=== PATIENT | female | born 1945 | race Caucasian/White ===

== ENCOUNTER 2020-05-20 07:34 | Outpatient (REF) | payer MEDICARE, SELFPAY ==
[2020-05-20 08:26] LABS: MANUAL DIFF FLAG NO
[2020-05-20 08:30] LABS: Basophils Percent Auto 0.5 % (0-2); Eosinophils Absolute Auto 0.2 X10*3/uL (0.0-0.4); Eosinophils Percent Auto 2.5 % (0-4); Hematocrit 40.7 % (37-47); Hemoglobin 13.8 g/dl (12.0-16.0); Imm Gran Abs Auto 0.02 X10*3/uL (0.00-0.03); Imm Gran Pct Auto 0.2 % (0.0-0.4); Lymphocytes Absolute Auto 4.1 X10*3/uL (1.2-4.9); Mean Corpuscular HGB Conc 33.9 g/dl (31.0-35.0); Mean Corpuscular Hemoglobin 31.8 pg (27.0-33.0); Mean Corpuscular Volume 93.8 fL (80-98); Mean Platelet Volume 10.3 fL (9.4-12.3); Monocytes Absolute Auto 0.8 X10*3/uL (0.1-1.2); Monocytes Percent Auto 9.1 % (2-11); Neutrophils Absolute Auto 3.6 X10*3/uL (2.0-8.3); Neutrophils Percent Auto 40.7 % (45-73); Platelet Count 284 X10*3/uL (160-400); Red Blood Count 4.34 X10*6/uL (4.20-5.50); Red Cell Distribution Width 12.7 % (11.0-16.0); White Blood Count 8.7 X10*3/uL (4.8-10.8)
[2020-05-20 08:51] LABS: Alanine Aminotransferase 54 U/L (0-31); Albumin Level 4.5 g/dL (3.5-5.0); Alkaline Phosphatase 83 U/L (39-117); Anion Gap 14 (12-20); Aspartate Amino Transferase 42 U/L (5-31); Bilirubin Total 0.7 mg/dL (0.0-1.0); Blood Urea Nitrogen 14 mg/dL (9-16); Calcium 9.6 mg/dL (8.4-10.2); Carbon Dioxide 25 mmol/L (22-29); Chloride 105 mmol/L (96-108); Cholesterol 285 mg/dL; Estimated Glomerular Filt Rate > 60; Glucose Fasting 121 mg/dL (60-99); HDL Cholesterol 51 mg/dL; LDL Cholesterol Calculated 165 mg/dl; Sodium 140 mmol/L (135-145); Total Protein 7.3 g/dL (6.5-8.0); Triglycerides 346 mg/dL
[2020-05-20 09:10] LABS: Estimated Average Glucose 114 mg/dL; Hemoglobin A1c % 5.6 %
[2020-05-20 12:48] LABS: Glucose Urine UA NEG (NEG); Leukocyte Esterase Urine 1+ (NEG); Nitrite Urine NEG (NEG); PH 5.5 (5.0-8.0); Specific Gravity - Urine 1.015 (1.005-1.025); Urine Blood NEG (NEG); Urine Ketones NEG (NEG); Urine Protein NEG (NEG-TRACE)
[2020-05-20 12:54] LABS: Appearance Urine HAZY; Color Urine YELLOW
[2020-05-20 13:13] LABS: Bacteria Urine 3+ /LPF; RBC Urine 0 /HPF (0); Renal Epithelial Cells Urine TRACE /LPF; Squamous Epithelial Cell Urine 1+ /LPF
[2020-05-20 13:46] LABS: Creatinine Urine 26.28 mg/dL; Microalbum/Creatinine Ratio Ur 30.4 ug/mg cr
== END 2020-05-20 07:35 | disposition home or self-care (01) ==
LOC: HO.LAB 07:34
PROVIDERS: PCP Internal Medicine; Visit Provider Internal Medicine
DX: Z00.00 Encounter for general adult medical examination without abnormal findings (principal); I10 Essential (primary) hypertension; R73.03 Prediabetes; D72.820 Lymphocytosis (symptomatic); E78.00 Pure hypercholesterolemia, unspecified
CPT/HCPCS: 36415; 80053; 80061; 81001; 82043; 83036; 84153; 85025

== ENCOUNTER 2020-07-07 16:58 | Outpatient (REF) | payer MEDICARE, SELFPAY | END 2020-07-07 16:59 | disposition home or self-care (01) | LOC: HO.LAB 16:58 | PROVIDERS: PCP Internal Medicine; Visit Provider Internal Medicine | DX: Z20.828 Contact with and (suspected) exposure to other viral communicable diseases (principal) | CPT/HCPCS: U0003 ==

== ENCOUNTER 2020-12-01 10:21 | Outpatient (REF) | payer MEDICARE, SELFPAY ==
[2020-12-01 11:23] LABS: Estimated Average Glucose 105 mg/dL; Hemoglobin A1c % 5.3 %
[2020-12-01 11:53] LABS: Alanine Aminotransferase 44 U/L (0-31); Albumin Level 4.4 g/dL (3.5-5.0); Alkaline Phosphatase 78 U/L (39-117); Aspartate Amino Transferase 33 U/L (5-31); Bilirubin Direct 0.2 mg/dL (0.0-0.5); Bilirubin Total 0.6 mg/dL (0.0-1.0); Cholesterol 270 mg/dL; Glucose Fasting 108 mg/dL (60-99); HDL Cholesterol 48 mg/dL; LDL Cholesterol Calculated 157 mg/dl; Total Protein 6.9 g/dL (6.5-8.0); Triglycerides 327 mg/dL
[2020-12-01 13:40] LABS: Reflex LDLD? No
== END 2020-12-01 10:22 | disposition home or self-care (01) ==
LOC: HO.LNP 10:21
PROVIDERS: PCP Internal Medicine; Visit Provider Internal Medicine
DX: R73.03 Prediabetes (principal); E78.2 Mixed hyperlipidemia; R79.89 Other specified abnormal findings of blood chemistry
CPT/HCPCS: 80061; 80076; 82947; 83036

== ENCOUNTER 2021-05-26 14:56 | Outpatient (REF) | payer MEDICARE, SELFPAY ==
[2021-05-26 15:00] LABS: MANUAL DIFF FLAG NO
[2021-05-26 15:10] LABS: Basophils Absolute Auto 0.1 X10*3/uL (0.0-0.2); Basophils Percent Auto 0.8 % (0-2); Eosinophils Absolute Auto 0.3 X10*3/uL (0.0-0.4); Eosinophils Percent Auto 3.2 % (0-4); Hematocrit 42.7 % (37-47); Hemoglobin 14.3 g/dl (12.0-16.0); Imm Gran Abs Auto 0.02 X10*3/uL (0.00-0.03); Imm Gran Pct Auto 0.3 % (0.0-0.4); Lymphocytes Absolute Auto 3.7 X10*3/uL (1.2-4.9); Lymphocytes Percent Auto 46.8 % (20-40); Mean Corpuscular HGB Conc 33.5 g/dl (31.0-35.0); Mean Corpuscular Hemoglobin 31.8 pg (27.0-33.0); Mean Corpuscular Volume 95.1 fL (80-98); Monocytes Absolute Auto 0.8 X10*3/uL (0.1-1.2); Monocytes Percent Auto 9.8 % (2-11); Neutrophils Absolute Auto 3.1 X10*3/uL (2.0-8.3); Neutrophils Percent Auto 39.1 % (45-73); Platelet Count 257 X10*3/uL (160-400); Red Blood Count 4.49 X10*6/uL (4.20-5.50); Red Cell Distribution Width 13.2 % (11.0-16.0); White Blood Count 7.9 X10*3/uL (4.8-10.8)
[2021-05-26 15:18] LABS: Estimated Average Glucose 111 mg/dL; Hemoglobin A1c % 5.5 %
[2021-05-26 15:51] LABS: Alanine Aminotransferase 36 U/L (0-31); Albumin Level 4.3 g/dL (3.5-5.0); Alkaline Phosphatase 85 U/L (39-117); Anion Gap 17 (12-20); Aspartate Amino Transferase 29 U/L (5-31); Bilirubin Total 0.5 mg/dL (0.0-1.0); Blood Urea Nitrogen 14 mg/dL (9-16); Calcium 9.7 mg/dL (8.4-10.2); Carbon Dioxide 23 mmol/L (22-29); Chloride 106 mmol/L (96-108); Cholesterol 272 mg/dL; Estimated Glomerular Filt Rate > 60; Glucose Fasting 105 mg/dL (60-99); HDL Cholesterol 45 mg/dL; LDL Cholesterol Calculated 174 mg/dl; Potassium 3.7 mmol/L (3.3-5.1); Sodium 142 mmol/L (135-145); Total Protein 6.8 g/dL (6.5-8.0); Triglycerides 268 mg/dL
[2021-05-26 18:21] LABS: Reflex LDLD? No
== END 2021-05-26 14:57 | disposition home or self-care (01) ==
LOC: HO.LNP 14:56
PROVIDERS: Visit Provider Internal Medicine
DX: I10 Essential (primary) hypertension (principal); R73.03 Prediabetes; D72.820 Lymphocytosis (symptomatic); E78.00 Pure hypercholesterolemia, unspecified; K75.81 Nonalcoholic steatohepatitis (NASH); R79.89 Other specified abnormal findings of blood chemistry
CPT/HCPCS: 80053; 80061; 83036; 85025

== ENCOUNTER 2021-05-28 11:18 | Outpatient (REF) | payer MEDICARE, SELFPAY ==
[2021-05-28 11:57] LABS: Appearance Urine HAZY; Color Urine YELLOW; Glucose Urine UA NEG (NEG); Leukocyte Esterase Urine 2+ (NEG); Nitrite Urine POS (NEG); Specific Gravity - Urine 1.015 (1.005-1.025); Urine Blood NEG (NEG); Urine Ketones NEG (NEG); Urine Protein NEG (NEG-TRACE)
[2021-05-28 12:09] LABS: RBC Urine 0 /HPF (0)
[2021-05-28 12:10] LABS: Bacteria Urine 2+ /LPF; Squamous Epithelial Cell Urine TRACE /LPF
[2021-05-28 18:02] LABS: Creatinine Urine 65.86 mg/dL; Microalbum/Creatinine Ratio Ur 12.1 ug/mg cr
== END 2021-05-28 11:19 | disposition home or self-care (01) ==
LOC: HO.LNP 11:18
PROVIDERS: PCP Internal Medicine; Visit Provider Internal Medicine
DX: I10 Essential (primary) hypertension (principal); R73.03 Prediabetes
CPT/HCPCS: 81001; 81003; 82043

== ENCOUNTER 2021-09-03 10:49 | Outpatient (REF) | payer MEDICARE, SELFPAY ==
[2021-09-03 11:30] LABS: Estimated Average Glucose 111 mg/dL; Hemoglobin A1c % 5.5 %
[2021-09-03 11:57] LABS: Alanine Aminotransferase 44 U/L (0-31); Albumin Level 4.5 g/dL (3.5-5.0); Alkaline Phosphatase 92 U/L (39-117); Aspartate Amino Transferase 34 U/L (5-31); Bilirubin Direct 0.2 mg/dL (0.0-0.5); Bilirubin Total 0.5 mg/dL (0.0-1.0); Cholesterol 230 mg/dL; Glucose Fasting 109 mg/dL (60-99); HDL Cholesterol 52 mg/dL; LDL Cholesterol Calculated 128 mg/dl; Total Protein 7.2 g/dL (6.5-8.0); Triglycerides 253 mg/dL
[2021-09-03 12:06] LABS: Reflex LDLD? No
== END 2021-09-03 10:50 | disposition home or self-care (01) ==
LOC: HO.LNP 10:49
PROVIDERS: Visit Provider Internal Medicine
DX: R73.03 Prediabetes (principal); E78.2 Mixed hyperlipidemia
CPT/HCPCS: 80061; 80076; 82947; 83036

== ENCOUNTER 2021-12-14 09:07 | Emergency (ER) | payer MEDICARE, SELFPAY ==
--- NOTE | 2021-12-14 | ECG_ITS ---
Test Reason : palpitations Blood Pressure : / mmHG Vent. Rate : 109 BPM Atrial Rate : 109 BPM P-R Int : 136 ms QRS Dur : 128 ms QT Int : 366 ms P-R-T Axes : 055 088 013 degrees QTc Int : 492 ms Sinus tachycardia Right bundle branch block Cannot rule out Inferior infarct (cited on or before 14-DEC-2021) Abnormal ECG When compared with ECG of 05-JUN-2018 14:47, No significant change was found Referred By: Generic ED Physician Electronically Signed By:PADMINI MENDEZ MD
--- NOTE | ~2021-12-14 | XR_ITS ---
EXAMINATION: XR CHEST CLINICAL INFORMATION: Palpitations COMPARISON: Previous chest CTA May 2018 TECHNIQUE: Frontal view of the chest was obtained. FINDINGS: No significant abnormality is noted involving the heart, lungs, mediastinum, bony thorax or soft tissues. XR/XR chest 1V IMPRESSION: Unremarkable examination.
--- NOTE | ~2021-12-14 | NM_ITS ---
EXAMINATION: PULMONARY PERFUSION STUDY CLINICAL INFORMATION: Tachycardia, palpitations, elevated d-dimer. COMPARISON: No previous lung scan is available for comparison. A radiograph the chest dated 12/14/2021, the same date as this lung scan, is available for comparison. TECHNIQUE: Following the intravenous injection of 4.0 mCi Tc-99m MAA, the lungs were imaged in the anterior and posterior, left and right lateral and GREEK, TANNER, LPO, and RPO projections using a gamma scintillation camera. FINDINGS: No segmental perfusion defects are present. There is homogeneous distribution of activity bilaterally. There are no focal anatomic appearing perfusion defects present. NM/NM pul perfusion IMPRESSION: Normal radionuclide lung perfusion scan.
[2021-12-14 09:13] VITALS: BP 176/80; PULSE 113; RESP 18; TEMP 36.1; O2SAT 95; BMI 25.4
[2021-12-14 09:46] VITALS: BP 166/83; PULSE 90; RESP 23; TEMP 36.9; O2SAT 97
[2021-12-14 10:15] VITALS: BP 164/65; PULSE 96; RESP 22; TEMP 36.8; O2SAT 98
[2021-12-14 11:06] LABS: MANUAL DIFF FLAG NO
--- NOTE | 2021-12-14 11:10 | ED_ITS ---
HPI - Arrhythmia/Palpitations General Chief Complaint: Arrhythmia/Palpitations Stated Complaint: Chest discomfort Time Seen by Provider: 12/14/21 11:10 Source: patient Mode of arrival: ambulatory Limitations: no limitations History of Present Illness MD complaint: rapid heart beat, heart racing and palpitations Onset (ago): day(s) (few) Duration: intermittent Severity: mild Context: occurred during rest (mostly at night gets sweats) Associated symptoms: anxiety and diaphoresis Related Data Allergies Allergy/AdvReac Type Severity Reaction Status Date / Time meperidine [From DEMEROL] Allergy Unknown AGITATION Unverified 04/24/20 14:52 Review of Systems Review of Systems: Constitutional : No Weight loss, No Fever, No Chills, pos sweats ENT/Mouth : No sore throat, No Rhinorrhea Eyes: No Eye Pain, No Swelling Cardiovascular : no Chest Pain, no SOB, no Dyspnea on Exertion, No Orthopnea, No Edema, pos Palpitations Respiratory : No Cough, No Sputum Gastrointestinal : no Nausea, No Vomiting, No Diarrhea, No abdominal Pain, No Hematochezia, No Melena Genitourinary : No Dysuria, No Urinary Frequency Musculoskeletal : No joint pain, No Myalgias, No Joint Swelling Skin : No Skin Lesions, No rash Neuro : No Weakness, No Numbness, No Dizziness, No Headache Psych : No Anxiety/Panic, No Depression Heme/Lymph: No Bruising, No Lymphadenopathy Endocrine : No Polyuria, No Polydipsia All other systems reviewed and are negative [facility] Past Medical History Attestation statement: The following information was validated with the patient. Medical History (Updated 12/14/21 @ 11:59 by Jolie Enriquez DO) HLD (hyperlipidemia) HTN (hypertension) Social History Social History Alcohol intake: never Patient Tobacco Use Status: Never used Tobacco Use of substances other than those prescribed or required for medical reasons: No Advance Directives: No Advance Directives Information Provided: No Physical Exam Vital Signs: Vital Signs: Last Vital Signs Temp 97.8 F 12/14/21 13:56 Pulse 95 12/14/21 13:56 Resp 18 12/14/21 13:56 BP 137/74 12/14/21 13:56 Pulse Ox 96 12/14/21 13:56 BMI result Body Mass Index 25.4 Appearance: Alert. Oriented X3. No acute distress. Eyes: Pupils equal, round and reactive to light. ENT: Pharynx normal. Neck: Normal inspection. Neck supple. CVS: tachycardic heart rate and rhythm. Pulses normal. Respiratory: No respiratory distress. Breath sounds normal. Abdomen: Soft and nontender. Skin: Skin warm and dry. Normal skin color. Normal skin turgor. Extremities: No lower extremity edema. No calf ttp Neuro: Oriented X 3. No motor deficit. No sensory deficit. Course Course Course Narrative: ddimer over limit of VTE threshold - VQ scan ordered negative workup negative for PE VS improved stable for DC MDM - Arrhythmia/Palpitations MDM Narrative Medical decision making narrative: 76 yo female with hx of HTN, HLD here with c/o sweats at night, HTN, HLD here with palpitations as well and just feeling fast heart rate. No etoh, caffeine, new medications or triggers. At this time will need labs, EKG, TSH, troponin, ddimer given tachycardia. Will hydrate as well - dispo per results and findings. Has no CP/SOB to suggest ACS. Lab Data Result diagrams: 12/14/21 10:53 12/14/21 10:53 Labs: Lab Results 12/14/21 12/14/21 12/14/21 Range/Units 10:53 10:53 10:53 WBC 6.3 (4.8-10.8) X10*3/uL RBC 4.72 (4.20-5.50) X10*6/uL Hgb 14.6 (12.0-16.0) g/dl Hct 44.1 (37.0-47.0) % MCV 93.4 (80.0-98.0) fL MCH 30.9 (27.0-33.0) pg MCHC 33.1 (31.0-35.0) g/dl RDW 13.0 (11.0-16.0) % Plt Count 253 (160-400) X10*3/uL MPV 10.6 (9.4-12.3) fL Immature Gran % (Auto) 0.5 H (0.0-0.4) % Neut % (Auto) 66.0 (45-73) % Lymph % (Auto) 23.9 (20-40) % [place] % (Auto) 8.1 (2-11) % Eos % (Auto) 0.9 (0-4) % Baso % (Auto) 0.6 (0-2) % Lymph # (Auto) 1.5 (1.2-4.9) X10*3/uL [place] # (Auto) 0.5 (0.1-1.2) X10*3/uL Eos # (Auto) 0.1 (0.0-0.4) X10*3/uL Baso # (Auto) 0.0 (0.0-0.2) X10*3/uL Abs Immat Gran (auto) 0.03 (0.00-0.03) X10*3/uL Absolute Neuts (auto) 4.2 (2.0-8.3) x10*3/uL Absolute Nucleated RBC 0.000 (0.0-0.012) X10*3/uL Nucleated RBC % (auto) 0.0 (0.0-0.2) /100WBC D-Dimer High Sensitivty NG/ML Sodium 142 (135-145) mmol/L Potassium 4.2 (3.3-5.1) mmol/L Chloride 107 (96-108) mmol/L Carbon Dioxide 24 (22-29) mmol/L Anion Gap 15 (12-20) BUN 14 (9-16) mg/dL Creatinine 0.75 (0.5-1.4) mg/dL Estim Creat Clear Calc 56.5 Estimated GFR > 60 Random Glucose 120 H (60-115) mg/dL Calcium 10.8 H D (8.4-10.2) mg/dL Troponin I High Sens < 3.5 (<3.5-17.0) ng/L TSH 1.75 (0.32-4.0) uIU/mL 12/14/21 Range/Units 11:45 WBC (4.8-10.8) X10*3/uL RBC (4.20-5.50) X10*6/uL Hgb (12.0-16.0) g/dl Hct (37.0-47.0) % MCV (80.0-98.0) fL MCH (27.0-33.0) pg MCHC (31.0-35.0) g/dl RDW (11.0-16.0) % Plt Count (160-400) X10*3/uL MPV (9.4-12.3) fL Immature Gran % (Auto) (0.0-0.4) % Neut % (Auto) (45-73) % Lymph % (Auto) (20-40) % [place] % (Auto) (2-11) % Eos % (Auto) (0-4) % Baso % (Auto) (0-2) % Lymph # (Auto) (1.2-4.9) X10*3/uL [place] # (Auto) (0.1-1.2) X10*3/uL Eos # (Auto) (0.0-0.4) X10*3/uL Baso # (Auto) (0.0-0.2) X10*3/uL Abs Immat Gran (auto) (0.00-0.03) X10*3/uL Absolute Neuts (auto) (2.0-8.3) x10*3/uL Absolute Nucleated RBC (0.0-0.012) X10*3/uL Nucleated RBC % (auto) (0.0-0.2) /100WBC D-Dimer High Sensitivty 241 NG/ML Sodium (135-145) mmol/L Potassium (3.3-5.1) mmol/L Chloride (96-108) mmol/L Carbon Dioxide (22-29) mmol/L Anion Gap (12-20) BUN (9-16) mg/dL Creatinine (0.5-1.4) mg/dL Estim Creat Clear Calc Estimated GFR Random Glucose (60-115) mg/dL Calcium (8.4-10.2) mg/dL Troponin I High Sens (<3.5-17.0) ng/L TSH (0.32-4.0) uIU/mL ECG Data Attestation: I personally reviewed and interpreted this ECG as follows: ECG interpretation date: 12/14/21 ECG interpretation time: 11:43 Interpretation: Rate: 109 Rhythm: sinus tachycardia [place]: normal Normal P waves. Normal TATIANA. RBBB ST T wave : nonspecific no VANESSA qTC: normal prior studies: no sig change 2018 The study has been interpreted contemporaneously by me. . Discharge Plan Discharge Clinical Impression: Palpitations Patient Disposition: Home, Self-Care Instructions: Heart Palpitations (ED) Additional Instructions: return to ED for any worsening symptoms or concerns normal tests for thyroid, heart tests, no blood clot found mild elevation in the calcium 10.8 have your doctor recheck this in 3 days Referrals: Jeff Lopes MD [Primary Care Provider] - 3 days Jorge Shepard MD [Physician] - 1 week (if palpitations continue might need a holter monitor)
[2021-12-14 11:21] LABS: Basophils Percent Auto 0.6 % (0-2); Eosinophils Absolute Auto 0.1 X10*3/uL (0.0-0.4); Eosinophils Percent Auto 0.9 % (0-4); Hematocrit 44.1 % (37.0-47.0); Hemoglobin 14.6 g/dl (12.0-16.0); Imm Gran Abs Auto 0.03 X10*3/uL (0.00-0.03); Imm Gran Pct Auto 0.5 % (0.0-0.4); Lymphocytes Absolute Auto 1.5 X10*3/uL (1.2-4.9); Lymphocytes Percent Auto 23.9 % (20-40); Mean Corpuscular HGB Conc 33.1 g/dl (31.0-35.0); Mean Corpuscular Hemoglobin 30.9 pg (27.0-33.0); Mean Corpuscular Volume 93.4 fL (80.0-98.0); Mean Platelet Volume 10.6 fL (9.4-12.3); Monocytes Absolute Auto 0.5 X10*3/uL (0.1-1.2); Monocytes Percent Auto 8.1 % (2-11); Neutrophils Absolute Auto 4.2 x10*3/uL (2.0-8.3); Platelet Count 253 X10*3/uL (160-400); Red Blood Count 4.72 X10*6/uL (4.20-5.50); White Blood Count 6.3 X10*3/uL (4.8-10.8)
[2021-12-14 11:30] LABS: Troponin-I High Sensitivity < 3.5 ng/L (<3.5-17.0)
[2021-12-14 11:32] LABS: Anion Gap 15 (12-20); Blood Urea Nitrogen 14 mg/dL (9-16); Calcium 10.8 mg/dL (8.4-10.2); Carbon Dioxide 24 mmol/L (22-29); Chloride 107 mmol/L (96-108); Creatinine Clr Calc Pharmacy 56.5; Estimated Glomerular Filt Rate > 60; Glucose Random 120 mg/dL (60-115); Potassium 4.2 mmol/L (3.3-5.1); Sodium 142 mmol/L (135-145)
[2021-12-14] MEDS: Lactated Ringers 1,000 ML 999 ML IV (11:49)
[2021-12-14 11:54] LABS: TSH reflex Free T4 1.75 uIU/mL (0.32-4.0)
[2021-12-14 12:03] LABS: D Dimer High Sensitivity 241 NG/ML
--- NOTE | 2021-12-14 13:28 | PC.NURSE ---
ash[place]ock accidentally bent in pt's l ac. new iv placed #20 l ac.
--- NOTE | 2021-12-14 13:30 | PC.NURSE ---
pt off to nuc med via stretcher with by her side.
[2021-12-14 13:56] VITALS: BP 137/74; PULSE 95; RESP 18; TEMP 36.6; O2SAT 96
--- NOTE | 2021-12-14 14:09 | PC.NURSE ---
pt c/o headache, took her own tylenol, dr. baez aware.
== END 2021-12-14 14:39 | disposition home or self-care (01) ==
PROVIDERS: Emergency Provider Emergency Medicine; PCP Internal Medicine
DX: R00.2 Palpitations (principal); I10 Essential (primary) hypertension
CPT/HCPCS: 36415; 71045; 78580; 80048; 84443; 84484; 85025; 85379; 93005; 96361; 96374; 99285; A9540

== ENCOUNTER 2021-12-22 10:50 | Outpatient (REF) | payer MEDICARE, SELFPAY ==
[2021-12-22 11:26] LABS: Calcium 10.2 mg/dL (8.4-10.2)
== END 2021-12-22 10:51 | disposition home or self-care (01) ==
LOC: HO.LNP 10:50
PROVIDERS: PCP Internal Medicine; Visit Provider Internal Medicine
DX: E83.52 Hypercalcemia (principal)
CPT/HCPCS: 82310

== ENCOUNTER 2022-05-31 10:48 | Outpatient (REF) | payer MEDICARE, SELFPAY ==
[2022-05-31 10:53] LABS: MANUAL DIFF FLAG NO
[2022-05-31 10:58] LABS: Basophils Absolute Auto 0.1 X10*3/uL (0.0-0.2); Basophils Percent Auto 0.7 % (0-2); Eosinophils Absolute Auto 0.2 X10*3/uL (0.0-0.4); Hematocrit 43.2 % (37.0-47.0); Hemoglobin 14.4 g/dl (12.0-16.0); Imm Gran Abs Auto 0.01 X10*3/uL (0.00-0.03); Imm Gran Pct Auto 0.1 % (0.0-0.4); Lymphocytes Absolute Auto 3.9 X10*3/uL (1.2-4.9); Mean Corpuscular HGB Conc 33.3 g/dl (31.0-35.0); Mean Corpuscular Hemoglobin 31.4 pg (27.0-33.0); Mean Corpuscular Volume 94.1 fL (80.0-98.0); Mean Platelet Volume 11.1 fL (9.4-12.3); Monocytes Absolute Auto 0.7 X10*3/uL (0.1-1.2); Monocytes Percent Auto 9.7 % (2-11); Neutrophils Absolute Auto 2.5 x10*3/uL (2.0-8.3); Neutrophils Percent Auto 33.5 % (45-73); Platelet Count 237 X10*3/uL (160-400); Red Blood Count 4.59 X10*6/uL (4.20-5.50); Red Cell Distribution Width 13.1 % (11.0-16.0); White Blood Count 7.4 X10*3/uL (4.8-10.8)
[2022-05-31 11:11] LABS: Alanine Aminotransferase 53 U/L (0-31); Albumin Level 4.4 g/dL (3.5-5.0); Alkaline Phosphatase 84 U/L (39-117); Anion Gap 15 (12-20); Aspartate Amino Transferase 39 U/L (5-31); Bilirubin Total 0.5 mg/dL (0.0-1.0); Blood Urea Nitrogen 14 mg/dL (9-16); Calcium 9.8 mg/dL (8.4-10.2); Carbon Dioxide 26 mmol/L (22-29); Chloride 106 mmol/L (96-108); Cholesterol 283 mg/dL; Estimated Glomerular Filt Rate > 60; Glucose Fasting 107 mg/dL (60-99); HDL Cholesterol 49 mg/dL; LDL Cholesterol Calculated 181 mg/dl; Potassium 4.4 mmol/L (3.3-5.1); Sodium 143 mmol/L (135-145); Total Protein 7.2 g/dL (6.5-8.0); Triglycerides 266 mg/dL
[2022-05-31 11:24] LABS: Estimated Average Glucose 111 mg/dL; Hemoglobin A1c % 5.5 %
== END 2022-05-31 10:49 | disposition home or self-care (01) ==
LOC: HO.LNP 10:48
PROVIDERS: Visit Provider Internal Medicine
DX: I10 Essential (primary) hypertension (principal); R73.03 Prediabetes; D72.820 Lymphocytosis (symptomatic); E78.00 Pure hypercholesterolemia, unspecified; R79.89 Other specified abnormal findings of blood chemistry; E83.52 Hypercalcemia
CPT/HCPCS: 80053; 80061; 83036; 85025

== ENCOUNTER 2022-06-04 11:43 | Outpatient (REF) | payer MEDICARE, SELFPAY ==
[2022-06-04 11:58] LABS: Appearance Urine Clear; Color Urine Yellow; Glucose Urine UA Negative (Negative); Leukocyte Esterase Urine Moderate (2+) (Negative); Nitrite Urine Positive (Negative); PH 5.5 (5.0-9.0); Specific Gravity - Urine 1.015 (1.005-1.025); UMIC TRIGGER UA YES; Urine Blood Negative (Negative); Urine Ketones Negative (Negative); Urine Protein Negative (Neg-Trace)
[2022-06-04 12:04] LABS: Bacteria Urine 4+ (None Seen); Hyaline Casts Urine 0-2 /LPF (0-2); RBC Urine 0-2 /HPF (0-2); Squamous Epithelial Cell Urine 0-2 /HPF (0-2); WBC Urine 21-50 /HPF (0-5)
[2022-06-04 13:25] LABS: Microalbum/Creatinine Ratio Ur 9.3 ug/mg cr
== END 2022-06-04 11:44 | disposition home or self-care (01) ==
LOC: HO.LNP 11:43
PROVIDERS: Visit Provider Internal Medicine
DX: Z13.89 Encounter for screening for other disorder (principal)
CPT/HCPCS: 81001; 82043

== ENCOUNTER 2023-06-12 13:04 | Emergency (ER) | payer MEDICARE, SELFPAY ==
--- NOTE | ~2023-06-12 | XR_ITS ---
EXAMINATION: CHEST 2 VIEWS CLINICAL INFORMATION: cp. COMPARISON: 12/14/2021. TECHNIQUE: PA and lateral views of the chest obtained. FINDINGS: The lungs are well expanded. No focal infiltrate, effusion, edema, or pneumothorax. Cardiac and mediastinal silhouettes are within normal limits for technique. No acute bony abnormality seen XR/XR chest 2V IMPRESSION: No evidence of acute disease
[2023-06-12 13:07] VITALS: BP 182/84; PULSE 106; RESP 18; TEMP 36.6; O2SAT 98; BMI 25.5
--- NOTE | 2023-06-12 13:07 | ECG_ITS ---
Test Reason : CP Blood Pressure : / mmHG Vent. Rate : 091 BPM Atrial Rate : 091 BPM P-R Int : 138 ms QRS Dur : 124 ms QT Int : 358 ms P-R-T Axes : 041 049 000 degrees QTc Int : 440 ms Normal sinus rhythm Right bundle branch block T wave abnormality, consider inferior ischemia Abnormal ECG When compared with ECG of 14-DEC-2021 09:07, T wave inversion more evident in Inferior leads Referred By: Mira Quick Electronically Signed By:MICHELLE ALMODOVAR MD
--- NOTE | 2023-06-12 13:07 | ED.CHESTPAIN ---
HPI - Chest Pain General Chief Complaint: Chest Pain Stated Complaint: Chest pain Time Seen by Provider: 06/12/23 13:52 Source: patient Mode of arrival: ambulatory Limitations: no limitations History of Present Illness HPI narrative: This 78 years old female presented to the emergency department with chief complaint of intermittent chest pain since . She has episode of chest pain since which lasts 5-10 minutes. No exertional. No diaphoresis today was radiated in the left jaw. She has history of hypertension history of hypercholesterolemia she does not smoke no diabetes MD complaint: chest pain Onset (ago): day(s) (3) Timing of current episode: episodic Onset: during rest Pain location: left chest Severity: mild Risk Factors Coronary artery disease risk factors: hyperlipidemia and hypertension Thoracic aortic dissection risk factors: none Related Data Allergies Allergy/AdvReac Type Severity Reaction Status Date / Time meperidine [From DEMEROL] Allergy Unknown AGITATION Verified 06/12/23 13:07 Review of Systems Constitutional: Constitutional: Reports no additional constitutional complaints ENT: Reports system reviewed and no additional complaints, except as documented Cardiovascular: Cardiovascular: Reports no additional cardiovascular complaints PMFSH Past Medical History Medical History HLD (hyperlipidemia) HTN (hypertension) Social History Social History Alcohol intake: never Patient Tobacco Use Status: Never used Tobacco Smoked in Last 30 Days: No Use of substances other than those prescribed or required for medical reasons: No Advance Directives: No Advance Directives Information Provided: Yes Physical Exam Vital Signs: Vital Signs: Last Vital Signs Temp 97.8 F 06/12/23 13:07 Pulse 94 06/12/23 14:12 Resp 16 06/12/23 14:12 BP 167/81 H 06/12/23 14:12 Pulse Ox 97 06/12/23 14:12 O2 Del Method Room Air 06/12/23 14:12 BMI result Body Mass Index 25.5 Const: General: cooperative Nutritional Appearance: well nourished Orientation/consciousness: patient oriented x3 Limitations: no limitations HEENT: Head: Yes normal to inspection General nose exam: Normal external nose present Face and sinus: Yes normal facial exam Mouth: Normal oral and palatal mucosa present Throat: Yes posterior oropharynx normal Neck: Neck: Yes normal visual inspection Thyroid: Thyroid normal Resp: Effort & Inspection: normal respiratory effort Auscultation: clear to auscultation bilaterally Cardio: Jugular venous distension: no JVD Rate: regular rate Rhythm: regular rhythm GI: Inspection: Yes normal to inspection Palpation (GI): Soft to palpation, not firm, nontender and no guarding Percussion: Yes normal to percussion Skin: General skin exam: no rashes or lesions noted, elasticity normal and turgor normal Lesions: no lesions Rashes: no rashes Neuro: General: patient oriented x3 Course Course Course Narrative: RME: 78yo F w/PMHx HTN, HLD, c/o substernal CP starting that has been intermittent, then came back today w/radiation to jaw. denies N/V, SOB, palpitations Patient anxious in triage, tachycardic EKG, Labs, CXR ordered Full HPI, ROS and PE to be performed by primary ED provider. Reevaluation(s) Reevaluation #1: Repeat troponin negative D-dimer negative chest pain-free with discharge. I discussed with patient and daughter both very comfortable with the plan of care Time: 16:31 Medical Decision Making Medical Decision Making [facility] Narrative: Patient presented with chest pain will obtain labs electrocardiogram EKG and reassess 16:30 remain pain-free tropi x2 negative, will discharge home. Patient will need outpatient stress test she will call the primary care physician in a.m. I think is a reasonable plan she has been having pain for few days and she is chest pain-free now Differential Diagnosis Differential Diagnoses: The differential diagnosis associated with the presentation includes ACS/pneumothorax/atypical chest pain Admission/Observation Consideration of admission/observation: Escalation of care including admission/observation considered Lab Data [facility] Lab Attestation statement: I reviewed the patient's lab results. 06/12/23 13:28 06/12/23 13:28 Labs: Lab Results 06/12/23 06/12/23 Range/Units 13:28 15:01 WBC 8.7 (4.8-10.8) X10*3/uL RBC 4.58 (4.20-5.50) X10*6/uL Hgb 14.6 (12.0-16.0) g/dl Hct 43.1 (37.0-47.0) % MCV 94.1 (80.0-98.0) fL MCH 31.9 (27.0-33.0) pg MCHC 33.9 (31.0-35.0) g/dl RDW 13.2 (11.0-16.0) % Plt Count 280 (160-400) X10*3/uL MPV 9.7 (9.4-12.3) fL Immature Gran % (Auto) 0.2 (0.0-0.4) % Neut % (Auto) 48.2 (45-73) % Lymph % (Auto) 41.2 H (20-40) % [place] % (Auto) 8.6 (2-11) % Eos % (Auto) 1.2 (0-4) % Baso % (Auto) 0.6 (0-2) % Lymph # (Auto) 3.6 (1.2-4.9) X10*3/uL [place] # (Auto) 0.7 (0.1-1.2) X10*3/uL Eos # (Auto) 0.1 (0.0-0.4) X10*3/uL Baso # (Auto) 0.1 (0.0-0.2) X10*3/uL Abs Immat Gran (auto) 0.02 (0.00-0.03) X10*3/uL Absolute Neuts (auto) 4.2 (2.0-8.3) x10*3/uL Absolute Nucleated RBC 0.000 (0.0-0.012) X10*3/uL Nucleated RBC % (auto) 0.0 (0.0-0.2) /100WBC PT 10.7 L (11.1-13.3) SEC INR 0.9 (0.9-1.1) D-Dimer High Sensitivty 235 NG/ML Sodium 139 (135-145) mmol/L Potassium 3.6 (3.3-5.1) mmol/L Chloride 103 (96-108) mmol/L Carbon Dioxide 25 (22-29) mmol/L Anion Gap 15 (12-20) BUN 11 (9-16) mg/dL Creatinine 0.82 (0.5-1.4) mg/dL Estim Creat Clear Calc 50.2 Estimated GFR > 60 Random Glucose 135 H (60-115) mg/dL Calcium 10.7 H D (8.4-10.2) mg/dL Magnesium 2.0 (1.6-2.6) mg/dL Total Bilirubin 0.6 (0.0-1.0) mg/dL Direct Bilirubin 0.2 (0.0-0.5) mg/dL AST 29 (5-31) U/L ALT 35 H (0-31) U/L Alkaline Phosphatase 84 (39-117) U/L Troponin I High Sens < 2.7 < 2.7 (<3.5-17.0) ng/L B-Natriuretic Peptide Cancelled Total Protein 8.0 (6.5-8.0) g/dL Albumin 4.0 (3.5-5.0) g/dL Urine Color Yellow Urine Appearance Clear Urine pH 6.0 (5.0-9.0) Ur Specific [place] <= 1.005 (1.005-1.025) Urine Protein Negative (Neg-Trace) mg/dL Urine Glucose (UA) Negative (Negative) mg/dL Urine Ketones Negative (Negative) mg/dL Urine Blood Negative (Negative) Urine Nitrite Negative (Negative) Ur Leukocyte Esterase Moderate (2+) H (Negative) Urine RBC 0-2 (0-2) /HPF Urine WBC 6-10 H (0-5) /HPF Ur Squamous Epith Cells 0-2 (0-2) /HPF Urine Bacteria 4+ (None Seen) Hyaline Casts 0-2 (0-2) /LPF COVID-19 (JOSSUE) Negative (Negative) COVID-19 Clin Com See Note Independent Interpretation I performed an independent interpretation of an: EKG Interpretation: Normal sinus rhythm 91 right bundle-branch block which is old Radiology Impression Discussion of test interpretation with radiology: I have reviewed the radiologist's reading. Radiologist Impression: CLINICAL INFORMATION: cp. COMPARISON: 12/14/2021. TECHNIQUE: PA and lateral views of the chest obtained. FINDINGS: The lungs are well expanded. No focal infiltrate, effusion, edema, or pneumothorax. Cardiac and mediastinal silhouettes are within normal limits for technique. No acute bony abnormality seen XR/XR chest 2V IMPRESSION: No evidence of acute disease Independent Historian Clinical information obtained from an independent historian. History obtained from or confirmed by: Other (daughter) Chronic Conditions Patient?s care impacted by: Hypertension Discharge Plan Discharge Clinical Impression: Chest pain Patient Disposition: Home, Self-Care Instructions: Chest Pain (DC) Additional Instructions: You should follow-up either with the you primary care physician or Cardiology to finish the evaluation you should have an outpatient stress test. He blood work today was reassuring a test for heart attack (troponin)was negative x2 but the evaluation is to be completed as outpatient Referrals: Luca Marcos MD [Physician] - 2 days
[2023-06-12 13:32] LABS: MANUAL DIFF FLAG NO
--- NOTE | 2023-06-12 13:34 | PC.NURSE ---
pt aox4, ambulatory. reporting intermittent left sided chest pain which started on . pain comes and goes. today pain radiated into neck and left side of head. At this time pain is not there. EKG done and labs done. pt anxious in ER room, states that they don't like coming to see the doctor. NSR on tele
[2023-06-12 13:37] LABS: Basophils Absolute Auto 0.1 X10*3/uL (0.0-0.2); Basophils Percent Auto 0.6 % (0-2); Eosinophils Absolute Auto 0.1 X10*3/uL (0.0-0.4); Eosinophils Percent Auto 1.2 % (0-4); Hematocrit 43.1 % (37.0-47.0); Hemoglobin 14.6 g/dl (12.0-16.0); Imm Gran Abs Auto 0.02 X10*3/uL (0.00-0.03); Imm Gran Pct Auto 0.2 % (0.0-0.4); Lymphocytes Absolute Auto 3.6 X10*3/uL (1.2-4.9); Lymphocytes Percent Auto 41.2 % (20-40); Mean Corpuscular HGB Conc 33.9 g/dl (31.0-35.0); Mean Corpuscular Hemoglobin 31.9 pg (27.0-33.0); Mean Corpuscular Volume 94.1 fL (80.0-98.0); Mean Platelet Volume 9.7 fL (9.4-12.3); Monocytes Absolute Auto 0.7 X10*3/uL (0.1-1.2); Monocytes Percent Auto 8.6 % (2-11); Neutrophils Absolute Auto 4.2 x10*3/uL (2.0-8.3); Neutrophils Percent Auto 48.2 % (45-73); Platelet Count 280 X10*3/uL (160-400); Red Blood Count 4.58 X10*6/uL (4.20-5.50); Red Cell Distribution Width 13.2 % (11.0-16.0); White Blood Count 8.7 X10*3/uL (4.8-10.8)
[2023-06-12 13:38] LABS: INTERNATIONAL NORM RATIO 0.9 (0.9-1.1); Prothrombin Time 10.7 SEC (11.1-13.3)
--- OUTSIDE RECORDS SUMMARY | 2023-06-12 13:40 | XMS_ITS | Patient Health Record ---
Author Name Unknown Organization Jeff Lopes MD Address [address] [place], [place] [id number] Care Team Providers Care Sterilizer Operator Name Role Phone Jeff Lopes Primary Care Provider [phone] ALLERGIES Allergen (clinical drug ingredient) Drug/Non Drug Allergy documented on EMR Reaction Allergy Type Onset Date Status simvastatin Simvastatin knee pain Drug Allergy Act esperanza atorvastatin Lipitor bone pain and myalgia Drug Allergy Active meperidine Demerol hallucinations Drug Allergy A ctive RESULTS Component Value Reference Range Notes MAMMOGRAM DIGITAL BILATERAL SCREEN Reviewed date:11/23/2022 03:24:41 PM Interpretation:Stable Performing Lab: Notes/Report: Stable Complete Blood Count Auto Di ff (Not yet reviewed by provider) Interpretation: Performing Lab:[facility], [address] [place] [phone] Notes/Report: White Blood Count 8.7 4.8-10.8 X10*3/uL Red Blood Count 4.58 4.20-5.50 X10*6/uL Hemoglobin 14.6 12.0-16.0 g/dl Hematocrit 43.1 37.0-47.0 % Mean Corpuscular Volume 94.1 80.0-98.0 fL Mean Corpuscular Hemoglobin 31.9 27.0-33.0 pg Mean Corpuscular HGB Conc 33.9 31.0-35.0 g/dl Red Cell Distribution Width 13.2 11.0-16.0 % Platelet Count 280 160-400 X10*3/uL Mean Platelet Volume 9.7 9.4-12.3 fL Neutrophils Percent Auto 48.2 45-73 % Imm Gran Pct Auto 0.2 0.0-0.4 % Lymphocytes Percent Auto 41.2 20-40 % Monocytes Percent Auto 8.6 2-11 % Eosinophils Percent Auto 1.2 0-4 % Basophils Percent Auto 0.6 0-2 % NRBC Pct Auto 0.0 0.0-0.2 /100WBC Neutrophils Absolute Auto 4.2 2.0-8.3 x10*3/u L Imm Gran Abs Auto 0.02 0.00-0.03 X10*3/uL Lymphocytes Absolute Auto 3.6 1.2-4.9 X10*3/u L Monocytes Absolute Auto 0.7 0.1-1.2 X10*3/uL Eosinophils Absolute Auto 0.1 0.0-0.4 X10*3/u L Basophils Absolute Auto 0.1 0.0-0.2 X10*3/uL NRBC Abs Auto 0.000 0.0-0.012 X10*3/uL REASON FOR REFERRAL Reason pure hypercholestero lemia Diagnosis 1 Pure hypercholestero lemia (E78.00) Referral Organization Jeff Lopes MD Referring Provider First Name Jeff Referring Provider Last Name Moses Referring Provider Speciality Internal M edicine Referred Provider Jorge Shepard Referred Provider Specialty Cardiovascul ar Disease General Notes Denia Dai 08:40:55 AM EST > notes faxed , Denia Dai 09/07/2022 11:19:00 AM EST > being worked on , Denia Dai 09/09/2022 08:49:36 AM EST > Spoke with [facility] Cardiology. They tried to make Antonette an appt, she is refusing. She said she doesn't want any pills ownly wants the injection. Was told by [facility] office they would train her to give it to her self. She stated she wouldn't do that. , I called patient and spoke with her she said she would discuss this withher PCP at her next doctors appt. Referral Priority Routine MEDICATIONS Medication SIG (Take, Route, Frequency, Duration) Notes Start Date End Date Status Ativan 0.5 MG 1 tablet at bedtime as needed Orally Once a day for 10 days 08/11/2012 Not-Taking amLODIPine Besylate 5 MG take 1 tablet b y mouth once a day Orally Once a day for 90 days Active Lisinopril-hydroCHLOROthi azide 20-12.5 MG take 1 tablet by mouth once daily Orally Once a day for 90 days Active Simvastatin 20 MG TAKE 1 TABLET BY YANDEL TH ONCE DAILY IN THE EVENING for 90 Active IMMUNIZATIONS Vaccine Route Administration Date Status Comme nts Flu Vaccine IM Intramuscular 05/25/2012 Administered TDaP IM Intramuscular 05/30/2012 Administered PPSV23 (Pnemovax) Unknown 08/11/2012 Administered Flu Vaccine IM Intramuscular 06/15/2013 Administered Flu Vaccine IM Intramuscular 07/09/2014 Administered zFluzone Quadrivalent IM Intramuscular 07/10/2015 Administ ered Prevnar 13 IM Intramuscular 07/10/2015 Administered Fluarix Quadrivalent IM Intramuscular 06/07/2016 Administe red Shingles IM Intramuscular 09/02/2009 Administered Fluarix Quadrivalent IM Intramuscular 06/20/2017 Administe red Fluarix Quadrivalent IM Intramuscular 06/01/2018 Administe red PPSV23 (Pnemovax) IM Intramuscular 06/22/2018 Administered Fluarix Quadrivalent IM Intramuscular 04/27/2019 Administe red Influenza High Dose Unknown 04/25/[address] [facility] Covid Vaccine Unknown 09/02/2020 Administered Pfizer Covid Vaccine Unknown 09/23/2020 Administered Pfizer Influenza High Dose IM Intramuscular 05/26/2021 Administer ed SARS-COV-2 Pfizer Unknown 06/12/2021 Administered Influenza High Dose IM Intramuscular 2022 Administer ed SOCIAL HISTORY Tobacco Use: Social History Observation Description Date Details (start date - stop date) Never Smoker NA - NA Sex Assigned At : Social History Observation Description Sex Assigned At Unknown Tobacco Use/Smoking Question Answer Notes Patient is a nonsmoker Additional Findings: Tobacco Non-User Cu rrent non-smoker, currently using no form of tobacco Alcohol Screen Question Answer Notes Did you have a drink containing alcohol in the p ast year? No Points 0 Interpretation Negative PROBLEMS Problem Type ICD Code Onset Dates Problem Status W/U Status Risk SNOMED Code Notes Problem Lymphocytosis (D72.820) Active confirmed 53485699 Problem Anxiety (F41.9) Active confirmed 193785 02 Problem Hypercalcemia (E83.52) Active confirmed Hypercalcemia (26111252) Problem Nonalcoholic steatohepatitis (VARGAS) (K75.81) Active confirmed 020995580 Problem Other specified menopausal and perimenopausal disorders (N95.8) Active confirmed 528158277 Problem Elevated LFTs (R79.89) Active confirmed 359563622 Problem Essential hypertensi on (I10) Active confirmed 44613523 Problem Prediabetes (R73.09) Active confirmed 9 231844 Problem RBBB (I45.10) Active confirmed 16352061 Problem Elevated triglycerid es with high cholesterol (E78.2) Active confirmed 468686090 Problem Post menopausal problems (N95.9) Active confirmed 82231490 Problem Pure hypercholesterolemia (E78.00) Active confirmed 657300224 Problem Adenomatous rectal polyp (D12.8) Active confirmed [id number] Encounters Encounter Location Date Provider Diagnosis Jeff Lopes MD [address] [place] [address] Drive [address] [place] [phone] 08/17/2022 Jeff Lopes Elevated LFTs R79.89 ; Essential hypertension I10 ; Pure hypercholesterolemia E78.00 ; Prediabetes R73.09 and Depression screen Z13.31 Jeff Lopes MD [address] [place] [address] [place] [phone] 09/09/2022 Jeff Lopes ASSESSMENTS Encounter Date Diagnosis Assessment Notes Treatment Notes Treatment Clinical Notes 08/17/2022 Elevated LFTs (ICD-1 0 - R79.89) stable 08/17/2022 Essential hypertensi on (ICD-10 - I10) doing well on meds at home, will continue curent regiment 08/17/2022 Pure hypercholestero lemia (ICD-10 - E78.00) refer to cardiology for meds for praluent 08/17/2022 Prediabetes (ICD-10 - R73.09) stable, no need for medication at this time 08/17/2022 Depression screen (I CD-10 - Z13.31) negative screen PLAN OF TREATMENT Pending Test Test Name Order Date Electrocardiogram (EKG) 06/14/2016 Electrocardiogram (EKG) 06/01/2018 Electrocardiogram (EKG) 05/24/2019 Complete Blood Count Auto Diff 3 Next Appt Details Provider Name:Jeff foster, 08/09/2023 07:15:00 AM, [address] [facility], [address], [place], [place], [phone], Provider Name:Jeff foster, 08/16/2023 09:30:00 AM, [address], [address], [place], [place], [phone], Insurance Providers Payer Name Payer Address Payer Phone Subscriber Number Group Number Insured Name Patient Relationship to Insured Coverage Start Date Coverage End Date MEDICARE NHIC [address] [place] [address] [id number] Antonette Willingham Self - patient is the insured [facility] [employer] [facility] CLAIM DIV [address] [place] [address] [id number] 2 Iron Willinghame Self - patient is the insured MEDICAL (GENERAL) HISTORY Medical History History ICD Code goes to workplace rehabilitation officer yearly colonoscopy in 2008; 02/01/20 13 - repeat 5 years w/ Dr Rootuscolonoscopy 2019 repeat 5 years READING SPECIALIST, Dr. Ayala Other specified menopausal and perimenop ausal disorders N95.8 Other specified menopausal and perimenop ausal disorders
--- OUTSIDE RECORDS SUMMARY | 2023-06-12 13:40 | XMS_ITS | Continuity of Care Document ---
Author Name Unknown Organization [facility] Address [address] [place] [address] Care Team Providers Care It Risk Analyst Name Role Phone Not on Staff, PCP Primary Care Physician Unavail able Encounter [facility] Date(s): 07/23/22 - 08/22/[address] [address] Attending Physician: Abena Alejandre Admitting Physician: Abena Alejandre Referring Physician: AdmtrAbena Allergies, Adverse Reactions, Alerts Substance Reaction Severity Status Demerol HCl Active Immunizations Given and Recorded Vaccine Date Status Refusal Reason influenza virus vaccine, inactivated 06/26/08 Give n Medications atenolol 100 mg oral tablet 100, mg, 1, tablet, By Mouth, Daily, 90, tablet, 3, 3, 06/26/08 10:40:34, Print MICHELA Number, ADS OPPTHS, [id number], Constant Indicator Start Date: 06/26/08 Stop Date: 06/21/09 Status: Ordered Ativan 0.5 mg oral tablet 0.5, mg, 1, tablet, By Mouth, Daily, 14 tablet, 0, 1, 1, 08/09/08 14:19:34, 01/13/08 9:55:30, PrintDEA Number, ADS OPPTHS, [id number], Constant Indicator Start Date: 01/13/08 Stop Date: 08/23/08 Status: Ordered Norvasc 5 mg oral tablet 5, mg, 1, tablet, By Mouth, Daily, 90, tablet, 1, 7, 06/26/08 10:41:50, 09/11/07 9:08:35, Print DEANumber, ADS OPPTHS, [id number], Constant Indicator Start Date: 09/11/07 Stop Date: 08/31/09 Status: Ordered Zestoretic 25 mg-20 mg oral tablet 1, tablet, By Mouth, Daily, 90, tablet, 1, 7, 06/26/08 10:41:09, 09/11/07 9:10:14, Print MICHELA Number, ADS OPPTHS, [id number], Constant Indicator Start Date: 09/11/07 Stop Date: 08/31/09 Status: Ordered Zocor 40 mg oral tablet 40, mg, 1, tablet, By Mouth, Daily at bedtime, 90, tablet, 1, 7, 06/26/08 10:41:35, 09/11/07 9:09:33, Print MICHELA Number, ADS OPPTHS, 144, Constant Indicator Start Date: 09/11/07 Stop Date: 08/31/09 Status: Ordered Problem List Condition Confirmation Course Effective Dates Status H ealth Status Informant Hypercholesterolemia Confirmed Active Hypertension Confirmed Active Patient Care team information Care Team Personnel Name: Not on Staff, PCP Position: S Physician (General Medicine) Member Role: PCP Care Team Related Persons Name: XIANG KHAN Address: [address] [address] [place]
[2023-06-12 13:47] LABS: Alanine Aminotransferase 35 U/L (0-31); Alkaline Phosphatase 84 U/L (39-117); Anion Gap 15 (12-20); Aspartate Amino Transferase 29 U/L (5-31); Bilirubin Direct 0.2 mg/dL (0.0-0.5); Bilirubin Total 0.6 mg/dL (0.0-1.0); Blood Urea Nitrogen 11 mg/dL (9-16); Calcium 10.7 mg/dL (8.4-10.2); Carbon Dioxide 25 mmol/L (22-29); Chloride 103 mmol/L (96-108); Creatinine Clr Calc Pharmacy 50.2; Estimated Glomerular Filt Rate > 60; Glucose Random 135 mg/dL (60-115); Potassium 3.6 mmol/L (3.3-5.1); Sodium 139 mmol/L (135-145)
[2023-06-12 14:03] LABS: Troponin-I High Sensitivity < 2.7 ng/L (<3.5-17.0)
[2023-06-12 14:08] LABS: COVID-19 Test Negative (Negative); IDNOW Serial# 6674DD1D
[2023-06-12 14:12] VITALS: BP 167/81; PULSE 94; RESP 16; O2SAT 97
[2023-06-12 15:11] LABS: Appearance Urine Clear; Color Urine Yellow; Glucose Urine UA Negative (Negative); Leukocyte Esterase Urine Moderate (2+) (Negative); Nitrite Urine Negative (Negative); Specific Gravity - Urine <= 1.005 (1.005-1.025); UMIC TRIGGER UACC YES; Urine Blood Negative (Negative); Urine Ketones Negative (Negative); Urine Protein Negative (Neg-Trace)
[2023-06-12 15:14] LABS: Bacteria Urine 4+ (None Seen); Hyaline Casts Urine 0-2 /LPF (0-2); RBC Urine 0-2 /HPF (0-2); Squamous Epithelial Cell Urine 0-2 /HPF (0-2); UACC Culture Trigger YES
[2023-06-12 15:36] LABS: D Dimer High Sensitivity 235 NG/ML; Troponin-I High Sensitivity < 2.7 ng/L (<3.5-17.0)
== END 2023-06-12 16:39 | disposition home or self-care (01) ==
PROVIDERS: Physician Assistant; Emergency Provider Emergency Medicine; PCP Internal Medicine
DX: R07.9 Chest pain, unspecified (principal); I10 Essential (primary) hypertension; E78.5 Hyperlipidemia, unspecified; R00.0 Tachycardia, unspecified; Z11.52 Encounter for screening for COVID-19
CPT/HCPCS: 36415; 71046; 80048; 80076; 81001; 83735; 84484; 85025; 85379; 85610; 87086; 87088; 87186; 87635; 93005; 99284; 99285

== ENCOUNTER 2023-06-14 08:30 | Outpatient (AMB) | payer MEDICARE, SELFPAY ==
[2023-06-14 08:39] VITALS: BP 140/82; PULSE 77; BMI 25.3
--- NOTE | 2023-06-14 08:39 | A.OFFVIS_ITS ---
Intake Vital Signs 06/14/23 08:39 Height 5 ft 2 in Weight 138 lb 7.205 oz BMI 25.3 BP 140/82 H Blood Pressure Location Rt brachial Position Sitting Pulse 77 Pulse Source Pulse Oximeter Intake Visit Reasons: [facility]/ [facility] ED fu./ Moses pate PEGGY /cp [place] Routeman Required: No Allergies meperidine [From DEMEROL] Allergy (Unknown, Verified 06/14/23 08:41) AGITATION Medication List - Last Reconciled 06/14/23 by MASHA Diamond amlodipine 5 mg PO DAILY lisinopril-hydrochlorothiazide 20-12.5 mg 1 tab PO DAILY HPI [facility]/ [facility] ED fu./ Moses pate PEGGY /cp HPI Details Antonette is a 78-year-old female with past medical history of hypertension, hyperlipidemia, right bundle branch block who has had recent chest discomfort and neck discomfort. She underwent ER evaluation and ruled out for ACS. She was referred to Cardiology in follow-up. Today she presents for cardiology consultation. She denies any known cardiac history. She describes having an episode of localized fake left chest pressure that occurred last lasting less than a minute. The following day she had the same feeling and then developed a discomfort in her left lateral neck region. This caused her to be fearful of impending PR and she went to the emergency room for evaluation. Her symptom resolved without any specific treatment. She has not had recurrent symptoms since that time. She tells me she is very active with walking 45 minutes to 1 hour daily. She also has been hiking recently without any concerning symptoms. She denies having chest discomfort brought on by exertional activities. No shortness of breath, palpitations, presyncope, syncope, PND, orthopnea or edema. She describes herself as healthy. Her father had fatal PR at age 64. Her mother had stroke at age 68 but lived till 80. She denies any personal history of diabetes. She has never smoked and does not drink any alcohol. She follows with her PCP Dr. Lopes routinely. [facility] Medical History (Updated 06/14/23 @ 11:03 by MASHA Diamond) HLD (hyperlipidemia) HTN (hypertension) Social History Alcohol intake: never Patient Tobacco Use Status: Never used Tobacco Review of Systems Const All systems reviewed & are unremarkable except as noted in HPI and below ENT Denies dizziness Card Details: short episodes of left chest vague discomfort, once with discomfort in left side of neck Denies chest pain, Denies chest pain at rest, Denies chest pain with activity, Denies rapid heart rate, Denies pedal edema, Denies edema, Denies leg edema, Denies lightheadedness, Denies palpitations, Denies dyspnea, Denies dyspnea on exertion and Denies orthopnea Resp Denies cough, Denies dyspnea and Denies dyspnea on exertion GI Denies hematochezia and Denies change in stool character Musc Denies abnormal gait, Reports limited range of motion, Reports muscle cramps, Denies muscle weakness, Denies numbness, Denies radiating pain into limb, Denies stiffness and Denies tingling Neuro Denies abnormal gait, Denies dizziness, Denies numbness and Denies tingling Endo Denies palpitations Physical Exam Vital Signs: Last Vital Signs Pulse 77 06/14/23 08:39 BP 140/82 H 06/14/23 08:39 BMI result Body Mass Index 25.3 Const General: cooperative, healthy appearing, comfortable and no acute distress Orientation/consciousness: patient oriented x3 Neck Neck: Yes normal visual inspection and Yes no JVD Resp Effort & Inspection: normal respiratory effort Auscultation: clear to auscultation bilaterally, no crackles, no rales, no rhonchi and no wheezes Cardio Jugular venous distension: no JVD Rate: regular rate Rhythm: regular rhythm Heart sounds: S1 normal heart sound present, S2 normal heart sound present, no murmurs and no rubs GI Inspection: Yes normal to inspection Skin General skin exam: no rashes or lesions noted Neuro General: patient oriented x3 Extrem General: Yes normal to inspection, No no pedal edema and No calf tenderness Psych Appearance: grossly normal Mental Status: mental status grossly normal Speech and movement: Normal speech and movement present Assessment & Plan Assessment & Plan (1) Chest discomfort: Code(s): R07.89 - Other chest pain Plan: Two episodes of chest discomfort, second episode with neck discomfort as descri bed above. Episodes occurring with nonexertional activities. She has had no chest discomfort brought on by exertion such as walking or hiking. No cardiac history. Cardiac risk factors of hypertension, hyperlipidemia, family history and age. ER evaluation on 06/12/2023, troponin and D-dimer both normal. Chest x-ray showed no active disease. EKG shows sinus rhythm with right bundle branch block, T-wave abnormality lead 3 and AVF similar to prior. Right bundle branch block is not new finding. For further evaluation Will check echocardiogram to assess for any structural heart disease. Will check exercise nuclear stress test to evaluate for ischemia. With EKG abnormality nuclear imaging will most beneficial test. She states she will be able to exercise on a treadmill. Reviewed signs and symptoms of angina with her. Emergency care if needed for concerning symptoms. Overall her symptom does sound atypical. Cardiology follow-up in 1 month, sooner if needed. (2) RBBB (right bundle branch block): Code(s): I45.10 - Unspecified right bundle-branch block Plan: Not new. Cardiac testing as above (3) HLD (hyperlipidemia): Code(s): E78.5 - Hyperlipidemia, unspecified Qualifiers: Hyperlipidemia type: unspecified Qualified Code(s): E78.5 - Hyperlipidemia, unspecified Plan: [place] LDL goal less than 100. Goal will be less than 70 if she is found to have coronary artery disease. Labs done on 05/31/2022 showed LDL 181. She tells me she did start on statin therapy in the past but it gave her bilateral leg muscle discomfort and she stopped it. She has not been on treatment since that time. Will update fasting lipid profile at this time. (4) HTN (hypertension): Code(s): I10 - Essential (primary) hypertension Qualifiers: Hypertension type: primary hypertension Qualified Code(s): I10 - Essential (primary) hypertension Plan: Mild elevation today. Patient states it is because she is in the office. Home blood pressures reported as normal. Blood pressure managed by her PCP. She is currently on amlodipine and lisinopril/hydrochlorothiazide combination pill. Orders: Orders CA stress test Today E78.5 - Hyperlipidemia, unspecified, I10 - Essential (primary) hypertension, I45.10 - Unspecified right bundle-branch block, R07.89 - Other chest pain Lipid Panel Today E78.5 - Hyperlipidemia, unspecified NM cardiolite stress test Today R94.31 - Abnormal electrocardiogram [ECG] [EKG] CA echo transthoracic complete Today I45.10 - Unspecified right bundle-branch block, R07.89 - Other chest pain Coding Level of Care Code New Pt Level 4 (07555) Diagnoses Chest discomfort R07.89 RBBB (right bundle branch block) I45.10 Hyperlipidemia, unspecified hyperlipidemia type E78.5 Hyperlipidemia type: unspecified Primary hypertension I10 Hypertension type: primary hypertension Time Spent (min) 28
== END 2023-06-14 09:29 | disposition home or self-care (01) ==
PROVIDERS: PCP Internal Medicine; Visit Provider Nurse Practitioner Family
DX: R07.89 Other chest pain (principal); I45.10 Unspecified right bundle-branch block; E78.5 Hyperlipidemia, unspecified; I10 Essential (primary) hypertension
CPT/HCPCS: 99204

== ENCOUNTER → 2023-06-14 08:30 | Outpatient (BNVA) | payer MEDICARE, SELFPAY | PROVIDERS: PCP Internal Medicine; Visit Provider Nurse Practitioner Family | DX: I45.10 Unspecified right bundle-branch block (principal); I10 Essential (primary) hypertension; R07.89 Other chest pain; E78.5 Hyperlipidemia, unspecified | CPT/HCPCS: 99202 ==

== ENCOUNTER → 2023-06-16 12:50 | Outpatient (REF) | payer MEDICARE, SELFPAY ==
--- NOTE | 2023-06-16 13:12 | CA_ITS ---
Transthoracic Echocardiogram Patient (Last, First, Middle): Antonette Willingham E Gender: Female Date of : 1945 Age: 78 Procedure Date: 06/16/2023 Procedure Type: Transthoracic Echocardiogram Location: OP Height: 160.02 cm Weight: 61.69 kg BSA: 1.64 m2 Heart Rate: bpm BP: 160 / 90 mmHg Kiln Burner: TO Referring MD: Leda Veliz [employer] Applications Programmer: Jorge Shepard MD Symptoms: R07.89 - Other chest pain Study Quality: Fair ECG Rhythm: Sinus Conclusions: - 1. Normal LV ejection fraction 60 65% with impaired relaxation filling pattern 2. Trivial aortic regurgitation 3. Upper limits of normal ascending aortic size 4. Normal RV systolic pressure 5. Trivial pericardial effusion Findings Left Ventricle Normal left ventricular size, thickness, and systolic function. The visually estimated ejection fraction is between 60-65%. Spectral Doppler is indicative of an impaired relaxation filling pattern. E/E prime ratio is between 8 and 15 consistent with indeterminate filling pressures. Right Ventricle Normal right ventricular cavity size and systolic function. Atria Both atria are normal in size. There is no evidence of interatrial shunt. Aortic Valve There is no aortic valve stenosis. There is trace (trivial) aortic valve regurgitation. Mitral Valve Normal mitral valve structure and function. There is trace mitral valve regurgitation. There is no mitral valve stenosis. Pulmonic Valve The pulmonic valve is likely normal. There is trace pulmonic valve regurgitation. Tricuspid Valve Normal tricuspid valve structure. There is trace tricuspid valve regurgitation. The right ventricular systolic pressure is normal. The right ventricular systolic pressure is 17 mmHg. Normal right atrial pressure. There is no evidence of pulmonary hypertension. Great Vessels The pulmonary artery was not well visualized. Venous The inferior vena cava is normal in size and collapses greater than 50% with inspiration. Pericardium/Pleural There is no evidence of pericardial effusion. There is a trivial loculated pericardial effusion overlying the left ventricle. Prior Study Comparison No prior study available for comparison. Measurements 2D Linear Measurements IVSd: 0.98 0.6-0.9/0.6-1.0 cm LVIDd: 4.22 3.9-5.3/4.2-5.9 cm LVIDd Index: 2.57 2.4-3.2/2.2-3.1 cm/m2 LVIDs: 2.58 2.0-3.6 cm LVPWd: 1.05 0.7-1.1 cm LA Diam: 2.90 2.7-3.8/3.0-4.0 cm LAIDs Index: 1.77 1.5-2.3 cm/m2 LV Mass: 175.38 67-162/88-224 g LV Mass Index: 106.94 43-95/49-115 g/m2 LVOT Diam: 2.00 3.0+(-)1.3 cm 2D Systolic Function EF 4C: 66.50 >55% EF 2C: 66.00 >55% EF BiP: 65.40 >55% Mitral Valve MV Pk E: 0.60 MV PK A: 0.70 MV Decel Time: 221.00 E/A: 0.90 E'Lateral: 5.87 E'Medial: 4.68 E/E' Med: 12.90 E/E' Lat: 10.30 PHT: 65.00 MVA PHT: 3.38 Decel Mifflin: 2.73 Aortic Valve AoV Pk Jose Francisco: 1.31 AoV Mn Jose Francisco: 0.86 AoV VTI: 0.28 AoV Pk Grad: 7.00 Aov Mn Grad: 3.00 INA Cont.VTI: 2.26 LVOT LVOT Pk Jose Francisco: 0.92 LVOT Mn Jose Francisco: 0.63 LVOT VTI: 0.20 LVOT Pk Grad: 3.00 LVOT Mn Grad: 2.00 LVOT Diam: 2.00 LVOT Area: 3.14 Diastolic Function MV Pk E: 0.60 MV Pk A: 0.70 E/A: 0.90 E'Medial: 4.68 E/E' Med: 12.90 E' Laterial: 5.87 E/E' Lat: 10.30 Right Ventricle TAPSE (mm): 23.60 TVS' Jose Francisco: 11.40 Tricuspid Valve TR Pk Jose Francisco: 1.90 TR Pk Grad: 14.00 RA Press: 3.00 RVSP: 17.00 Great Vessels Aorta Sinus of Valsalva: 2.89 2.0-3.5 cm Ao Asc: 3.60 2.1-3.4 cm Ao Arch: 3.20 Updated in Other Vendor System with Status of Final Jorge Shepard MD electronically signed on 06/17/2023 1:24:36 PM with status of Final
== END | disposition home or self-care (01) ==
LOC: HO.CARD 12:50
PROVIDERS: PCP Internal Medicine; Visit Provider Nurse Practitioner Family
DX: R07.89 Other chest pain (principal); I45.10 Unspecified right bundle-branch block
CPT/HCPCS: 93306

== ENCOUNTER → 2023-06-16 13:12 | Outpatient (BNV) | payer MEDICARE, SELFPAY | PROVIDERS: PCP Internal Medicine; Visit Provider Internal Medicine Cardiovascular Disease | DX: R07.89 Other chest pain (principal) | CPT/HCPCS: 93306 ==

== ENCOUNTER → 2023-06-17 08:51 | Outpatient (REF) | payer MEDICARE, SELFPAY ==
--- NOTE | ~2023-06-17 | NM_ITS ---
Exercise Myocardial perfusion study Indication: Abnormal EKG to evaluate for myocardial ischemia Technique: The patient was brought in for an exercise perfusion study on 06/17/2023. Patient performed exercise as per Scott protocol and was injected 25 mCi of sestamibi was given intravenously one target HR was achieved. Images were obtained using the SPECT gamma camera interlaced with the gating device. Images were obtained in supine position. Resting perfusion study was performed on 06/20/2023. Patient was administered 25 mCi of sestamibi intravenously at rest. Images were then obtained in supine position. Images obtained with and without CT attenuation. Total DLP 91 mGy-cm Images were processed with the software and compared side to side in short axis, horizontal long axis and vertical long axis views. Findings: The stress perfusion study showed both attenuated as well as non attenuated corrected images show normal uptake of radiotracer in all segments of LV myocardium. There is suggestion of left ventricle hypertrophy. The gated study shows normal LV systolic function with calculated LVEF of greater than 70%. LV cavity is normal in size. The gated study shows normal systolic wall thickening and contraction of all segments. There is no transient ischemic dilation. Resting study shows both attenuated as well as non attenuated corrected images show minimally reduced uptake in the apex of the LV myocardium. Gating at rest reveals normal systolic wall motion with ejection fraction at greater than 70%. The findings are consistent with normal myocardial perfusion. NM/NM cardiolite stress test Impression: 1. Normal myocardial perfusion 2. Gated LVEF is greater than 70% 3. Transient ischemic dilatation present Stress EKG is negative for ischemia
--- NOTE | 2023-06-17 08:53 | CA_ITS ---
Acquisition Time: 2023-06-17 09:21:25 Total Exercise Time: 00:05:01 Test Indications: CHEST PAIN Medications: Protocol: MAHENDRA Max HR: 150 BPM 104% of Pred: 143 BPM Max BP: 156/066 mmHG Max Work Load: 4.6 METS Exercise stress test exercise 5 min 1 sec of Mahendra protocol (stage 1 held due to HR at 93% MPHR) achieving 103% MPHR, without anginal symptoms, with isolated PVCs, with normotensive response to exericse, without EKG changes. Nuclear images pending. Test reviewed with Dr. Shepard Referred By: Leda Veliz Overread By: Viridiana Hahn
== END | disposition home or self-care (01) ==
LOC: HO.CARD 08:51
PROVIDERS: PCP Internal Medicine; Visit Provider Nurse Practitioner Family
DX: R07.89 Other chest pain (principal); I45.10 Unspecified right bundle-branch block; R94.31 Abnormal electrocardiogram [ECG] [EKG]; I10 Essential (primary) hypertension; E78.5 Hyperlipidemia, unspecified
CPT/HCPCS: 78452; 93017; A9500

== ENCOUNTER → 2023-06-17 08:53 | Outpatient (BNV) | payer MEDICARE, SELFPAY | PROVIDERS: PCP Internal Medicine; Visit Provider Nurse Practitioner | DX: R07.89 Other chest pain (principal); R94.31 Abnormal electrocardiogram [ECG] [EKG] | CPT/HCPCS: 78452; 93016; 93018 ==

== ENCOUNTER 2023-07-05 15:25 | Outpatient (REF) | payer MEDICARE, SELFPAY ==
[2023-07-05 15:45] LABS: Appearance Urine Clear; Color Urine Yellow; Glucose Urine UA Negative (Negative); Leukocyte Esterase Urine Moderate (2+) (Negative); Nitrite Urine Negative (Negative); UMIC TRIGGER UACC YES; Urine Blood Negative (Negative); Urine Ketones Negative (Negative); Urine Protein Negative (Neg-Trace)
[2023-07-05 15:50] LABS: Bacteria Urine 4+ (None Seen); Hyaline Casts Urine 0-2 /LPF (0-2); RBC Urine 0-2 /HPF (0-2); Squamous Epithelial Cell Urine 0-2 /HPF (0-2); UACC Culture Trigger YES
== END 2023-07-05 15:26 | disposition home or self-care (01) ==
LOC: HO.LNP 15:25
PROVIDERS: Visit Provider Internal Medicine
DX: N39.0 Urinary tract infection, site not specified (principal)
CPT/HCPCS: 81001; 87086; 87088; 87186

== ENCOUNTER 2023-07-12 13:09 | Outpatient (AMB) | payer MEDICARE, SELFPAY ==
[2023-07-12 13:11] VITALS: BP 142/80; PULSE 98; O2SAT 98; BMI 25.5
--- NOTE | 2023-07-12 13:11 | A.OFFVIS_ITS ---
Intake Vital Signs 07/12/23 13:11 Height 5 ft 2 in Weight 139 lb 5.314 oz BMI 25.5 BP 142/80 H Blood Pressure Location Lt brachial Position Sitting Pulse 98 Pulse Source Pulse Oximeter Pulse Oximetry (%) 98 Intake Visit Reasons: f/u after testing Nurse Orthopedic Required: No Allergies meperidine [From DEMEROL] Allergy (Unknown, Verified 07/12/23 13:13) AGITATION Medication List - Last Reconciled 07/12/23 by Leda Veliz, EVENT SALES ASSISTANT-C amlodipine 5 mg PO DAILY lisinopril-hydrochlorothiazide 20-12.5 mg 1 tab PO DAILY HPI f/u after testing HPI Details Antonette is a 78-year-old female with past medical history of hypertension, hyperlipidemia, right bundle branch block who had recent chest discomfort and neck discomfort. She underwent ER evaluation for her symptoms and ruled out for ACS. She was seen in consultation on last visit and an echocardiogram and nuclear stress test were ordered. Today she reports she has had no recurrent symptoms. She denies any chest discomfort at rest or with activity. She has no discomfort that radiates to her neck. She feels she over reacted to her symptoms. She tells me she had read an article that said that heart pain can go to the neck. No shortness of breath, palpitations, presyncope, syncope, PND, orthopnea or edema. Taking all meds as directed. Had previously stopped cholesterol lowering agent due to leg discomfort. HPI Comments History of Present Illness Details Antonette is a 78-year-old female with past medical history of hypertension, hyperlipidemia, right bundle branch block who has had recent chest discomfort and neck discomfort. She underwent ER evaluation and ruled out for ACS. She was referred to Cardiology in follow-up. [facility] Medical History HLD (hyperlipidemia) HTN (hypertension) Social History Alcohol intake: never Patient Tobacco Use Status: Never used Tobacco Review of Systems Const All systems reviewed & are unremarkable except as noted in HPI and below ENT Denies dizziness Card Denies chest pain, Denies chest pain at rest, Denies chest pain with activity, Denies rapid heart rate, Denies pedal edema, Denies edema, Denies leg edema, Denies lightheadedness, Denies palpitations, Denies dyspnea, Denies dyspnea on exertion and Denies orthopnea Resp Denies cough, Denies dyspnea and Denies dyspnea on exertion GI Denies hematochezia and Denies change in stool character Musc Denies abnormal gait, Denies limited range of motion, Denies muscle cramps, Denies muscle weakness, Denies numbness, Denies radiating pain into limb, Denies stiffness and Denies tingling Neuro Denies abnormal gait, Denies dizziness, Denies numbness and Denies tingling Endo Denies palpitations Physical Exam Vital Signs: Last Vital Signs Pulse 98 07/12/23 13:11 BP 142/80 H 07/12/23 13:11 Pulse Ox 98 07/12/23 13:11 BMI result Body Mass Index 25.5 Const General: cooperative, healthy appearing, comfortable and no acute distress Orientation/consciousness: patient oriented x3 Neck Neck: Yes normal visual inspection Resp Effort & Inspection: normal respiratory effort Auscultation: clear to auscultation bilaterally, no crackles, no rales, no rhonchi and no wheezes Cardio Jugular venous distension: no JVD Rate: regular rate Rhythm: regular rhythm Heart sounds: S1 normal heart sound present, S2 normal heart sound present, no murmurs and no rubs Neuro General: patient oriented x3 Extrem General: Yes normal to inspection Psych Appearance: grossly normal Mental Status: mental status grossly normal Speech and movement: Normal speech and movement present Assessment & Plan Assessment & Plan (1) Chest discomfort: Code(s): R07.89 - Other chest pain Plan: Two episodes of chest discomfort, second episode with neck discomfort causing her concern. No cardiac history. She was evaluated in the emergency room on 06/12/2023 for her symptoms: troponin and D-dimer both normal. Chest x-ray showed no active disease. EKG shows sinus rhythm with right bundle branch block, T-wave abnormality lead 3 and AVF similar to prior. Right bundle branch block is not new finding. She underwent an echocardiogram on 06/16/2023 showing EF 60-65%, impaired relaxation, no valve abnormalities, normal RV. Exercise nuclear stress test done 06/17/2023 with exercise 5 minutes, no anginal symptoms, no EKG changes, normal myocardial perfusion imaging t.i.d. is not present. (Actual report conclusions states t.i.d. is present however in the body of the report it states not present. Confirmed with Dr. Shepard that Not present is correct). Review test results with her in detail. Today she reports no recurrent symptoms. She feels that anxiety may have contributed to her symptoms. Reviewed signs and symptoms of angina with her. Offered reassurance that cardiac testing was normal. Cardiology follow-up as needed. (2) RBBB (right bundle branch block): Code(s): I45.10 - Unspecified right bundle-branch block Plan: Not new. Cardiac testing as above (3) HLD (hyperlipidemia): Code(s): E78.5 - Hyperlipidemia, unspecified Qualifiers: Hyperlipidemia type: unspecified Qualified Code(s): E78.5 - Hyperlipidemia, unspecified Plan: [place] LDL goal less than 100. Labs done on 05/31/2022 showed LDL 181. She tells me she did start on statin therapy in the past but it gave her bilateral leg muscle discomfort and she stopped it. She has not been on treatment since that time. Lipid profile was ordered last visit however not completed. She tells me she does still have her statin at home. She is willing to retry. Instructed on every other day use. If she has recurrent leg discomfort then try adding coenzyme Q10 which can be obtained [id number]. If she is then able to tolerate her medication she can try going to daily use. She will continue to follow with her PCP for her cholesterol. If she is unable to tolerate statins then a PCSK9 inhibitor can be added. (4) HTN (hypertension): Code(s): I10 - Essential (primary) hypertension Qualifiers: Hypertension type: primary hypertension Qualified Code(s): I10 - Essential (primary) hypertension Plan: Mild elevation today. Patient states it is because she is in the office. Home blood pressures reported as normal. Blood pressure managed by her PCP. She is currently on amlodipine and lisinopril/hydrochlorothiazide combination pill. Coding Level of Care Code Est Pt Level 3 (51463) Diagnoses Chest discomfort R07.89 RBBB (right bundle branch block) I45.10 Hyperlipidemia, unspecified hyperlipidemia type E78.5 Hyperlipidemia type: unspecified Primary hypertension I10 Hypertension type: primary hypertension Time Spent (min) 24
== END 2023-07-12 13:39 | disposition home or self-care (01) ==
PROVIDERS: PCP Internal Medicine; Visit Provider Nurse Practitioner Family
DX: R07.89 Other chest pain (principal); I45.10 Unspecified right bundle-branch block; E78.5 Hyperlipidemia, unspecified; I10 Essential (primary) hypertension
CPT/HCPCS: 99213

== ENCOUNTER → 2023-07-12 13:09 | Outpatient (BNVA) | payer MEDICARE, SELFPAY | PROVIDERS: PCP Internal Medicine; Visit Provider Nurse Practitioner Family | DX: R07.89 Other chest pain (principal); I45.10 Unspecified right bundle-branch block; I10 Essential (primary) hypertension; E78.5 Hyperlipidemia, unspecified | CPT/HCPCS: 99212 ==

== ENCOUNTER 2023-08-09 11:21 | Outpatient (REF) | payer MEDICARE, SELFPAY ==
[2023-08-09 11:35] LABS: MANUAL DIFF FLAG NO
[2023-08-09 12:00] LABS: Basophils Percent Auto 0.2 % (0-2); Hematocrit 45.7 % (37.0-47.0); Imm Gran Abs Auto 0.12 X10*3/uL (0.00-0.03); Lymphocytes Absolute Auto 3.1 X10*3/uL (1.2-4.9); Lymphocytes Percent Auto 26.3 % (20-40); Mean Corpuscular HGB Conc 32.8 g/dl (31.0-35.0); Mean Corpuscular Hemoglobin 31.3 pg (27.0-33.0); Mean Corpuscular Volume 95.4 fL (80.0-98.0); Mean Platelet Volume 10.9 fL (9.4-12.3); Monocytes Absolute Auto 1.1 X10*3/uL (0.1-1.2); Monocytes Percent Auto 9.3 % (2-11); Neutrophils Absolute Auto 7.3 x10*3/uL (2.0-8.3); Neutrophils Percent Auto 63.2 % (45-73); Platelet Count 278 X10*3/uL (160-400); Red Blood Count 4.79 X10*6/uL (4.20-5.50); Red Cell Distribution Width 13.2 % (11.0-16.0); White Blood Count 11.6 X10*3/uL (4.8-10.8)
[2023-08-09 12:02] LABS: Appearance Urine Clear; Color Urine Yellow; Glucose Urine UA Negative (Negative); Leukocyte Esterase Urine Negative (Negative); Nitrite Urine Negative (Negative); Urine Blood Negative (Negative); Urine Ketones Negative (Negative); Urine Protein Negative (Neg-Trace)
[2023-08-09 12:06] LABS: Bacteria Urine Trace (None Seen); Hyaline Casts Urine 0-2 /LPF (0-2); RBC Urine 0-2 /HPF (0-2); Squamous Epithelial Cell Urine 0-2 /HPF (0-2); WBC Urine 0-5 /HPF (0-5)
[2023-08-09 12:12] LABS: Estimated Average Glucose 108 mg/dL; Hemoglobin A1c % 5.4 % (<6.0)
[2023-08-09 12:26] LABS: Alanine Aminotransferase 34 U/L (0-31); Albumin Level 4.5 g/dL (3.5-5.0); Alkaline Phosphatase 70 U/L (39-117); Anion Gap 12 (12-20); Aspartate Amino Transferase 20 U/L (5-31); Bilirubin Direct 0.2 mg/dL (0.0-0.5); Bilirubin Total 0.7 mg/dL (0.0-1.0); Blood Urea Nitrogen 20 mg/dL (9-16); Carbon Dioxide 24 mmol/L (22-29); Chloride 107 mmol/L (96-108); Cholesterol 329 mg/dL (<200); Estimated Glomerular Filt Rate > 60; Glucose Fasting 104 mg/dL (60-99); HDL Cholesterol 70 mg/dL (>40); LDL Cholesterol Calculated 221 mg/dL (<100); Sodium 139 mmol/L (135-145); Total Protein 7.5 g/dL (6.5-8.0); Triglycerides 192 mg/dL (<150)
[2023-08-09 12:40] LABS: Creatinine Urine 35.59 mg/dL; Microalbumin Urine < 5.0 mg/L
== END 2023-08-09 11:22 | disposition home or self-care (01) ==
LOC: HO.LNP 11:21
PROVIDERS: Visit Provider Internal Medicine
DX: I10 Essential (primary) hypertension (principal); R73.03 Prediabetes; D72.820 Lymphocytosis (symptomatic); E78.00 Pure hypercholesterolemia, unspecified; R79.89 Other specified abnormal findings of blood chemistry; E83.52 Hypercalcemia
CPT/HCPCS: 80053; 80061; 80076; 81001; 82043; 82570; 83036; 85025

== ENCOUNTER 2023-08-23 10:42 | Outpatient (REF) | payer MEDICARE, SELFPAY ==
[2023-08-23 10:54] LABS: Appearance Urine Cloudy; Color Urine Yellow; Glucose Urine UA Negative (Negative); Leukocyte Esterase Urine Large (3+) (Negative); Nitrite Urine Positive (Negative); PH 6.5 (5.0-9.0); Specific Gravity - Urine <= 1.005 (1.005-1.025); UMIC TRIGGER UACC YES; Urine Blood Trace (Negative); Urine Ketones Negative (Negative); Urine Protein Negative (Neg-Trace)
[2023-08-23 11:01] LABS: Bacteria Urine 4+ (None Seen); Hyaline Casts Urine 0-2 /LPF (0-2); RBC Urine 0-2 /HPF (0-2); Squamous Epithelial Cell Urine 0-2 /HPF (0-2); UACC Culture Trigger YES; WBC Urine >50 /HPF (0-5)
== END 2023-08-23 10:43 | disposition home or self-care (01) ==
LOC: HO.LNP 10:42
PROVIDERS: Visit Provider Internal Medicine
DX: N39.0 Urinary tract infection, site not specified (principal)
CPT/HCPCS: 81001; 87086; 87088; 87186

== ENCOUNTER 2023-09-06 10:53 | Outpatient (REF) | payer MEDICARE, SELFPAY ==
[2023-09-06 11:44] LABS: Appearance Urine Clear; Color Urine Yellow; Glucose Urine UA Negative (Negative); Leukocyte Esterase Urine Small (1+) (Negative); Nitrite Urine Negative (Negative); Specific Gravity - Urine 1.015 (1.005-1.025); UMIC TRIGGER UA YES; Urine Blood Trace (Negative); Urine Ketones Negative (Negative); Urine Protein Negative (Neg-Trace)
[2023-09-06 12:05] LABS: Bacteria Urine None Seen (None Seen); Hyaline Casts Urine 0-2 /LPF (0-2); RBC Urine 0-2 /HPF (0-2)
== END 2023-09-06 10:54 | disposition home or self-care (01) ==
LOC: HO.LNP 10:53
PROVIDERS: Visit Provider Internal Medicine
DX: R31.29 Other microscopic hematuria (principal)
CPT/HCPCS: 81001

== ENCOUNTER 2024-01-03 10:43 | Outpatient (REF) | payer MEDICARE, SELFPAY ==
[2024-01-03 11:26] LABS: Estimated Average Glucose 114 mg/dL; Hemoglobin A1c % 5.6 % (<6.0)
[2024-01-03 11:31] LABS: Alanine Aminotransferase 26 U/L (0-31); Albumin Level 4.4 g/dL (3.5-5.0); Alkaline Phosphatase 78 U/L (39-117); Aspartate Amino Transferase 24 U/L (5-31); Bilirubin Direct 0.2 mg/dL (0.0-0.5); Bilirubin Total 0.5 mg/dL (0.0-1.0); Cholesterol 228 mg/dL (<200); Glucose Fasting 98 mg/dL (60-99); HDL Cholesterol 58 mg/dL (>40); LDL Cholesterol Calculated 132 mg/dL (<100); Total Protein 7.3 g/dL (6.5-8.0); Triglycerides 192 mg/dL (<150)
[2024-01-03 12:35] LABS: Reflex LDLD? No
== END 2024-01-03 10:44 | disposition home or self-care (01) ==
LOC: HO.LNP 10:43
PROVIDERS: Visit Provider Internal Medicine
DX: R73.09 Other abnormal glucose (principal); E78.00 Pure hypercholesterolemia, unspecified
CPT/HCPCS: 80061; 80076; 82947; 83036

== ENCOUNTER 2024-01-19 11:02 | Outpatient (REF) | payer MEDICARE, SELFPAY ==
[2024-01-19 11:16] LABS: Appearance Urine Clear; Color Urine Yellow; Glucose Urine UA Negative (Negative); Leukocyte Esterase Urine Small (1+) (Negative); Nitrite Urine Negative (Negative); PH 5.5 (5.0-9.0); Specific Gravity - Urine 1.015 (1.005-1.025); UMIC TRIGGER UACC YES; Urine Blood Negative (Negative); Urine Ketones Negative (Negative); Urine Protein Negative (Neg-Trace)
[2024-01-19 11:31] LABS: Bacteria Urine None Seen (None Seen); Hyaline Casts Urine 0-2 /LPF (0-2); RBC Urine 0-2 /HPF (0-2); Squamous Epithelial Cell Urine 0-2 /HPF (0-2); UACC Culture Trigger YES; WBC Urine 0-5 /HPF (0-5)
== END 2024-01-19 11:03 | disposition home or self-care (01) ==
LOC: HO.LNP 11:02
PROVIDERS: Visit Provider Internal Medicine
DX: N39.0 Urinary tract infection, site not specified (principal)
CPT/HCPCS: 81001; 87086

== ENCOUNTER 2024-08-31 08:00 | Outpatient (REF) | payer MEDICARE, SELFPAY ==
[2024-08-31 11:00] LABS: MANUAL DIFF FLAG NO
[2024-08-31 11:23] LABS: Basophils Absolute Auto 0.1 X10*3/uL (0.0-0.2); Basophils Percent Auto 0.8 % (0-2); Eosinophils Absolute Auto 0.2 X10*3/uL (0.0-0.4); Eosinophils Percent Auto 3.1 % (0-4); Hematocrit 44.1 % (37.0-47.0); Hemoglobin 14.7 g/dl (12.0-16.0); Imm Gran Abs Auto 0.01 X10*3/uL (0.00-0.03); Imm Gran Pct Auto 0.2 % (0.0-0.4); Lymphocytes Absolute Auto 3.3 X10*3/uL (1.2-4.9); Lymphocytes Percent Auto 50.7 % (20-40); Mean Corpuscular HGB Conc 33.3 g/dl (31.0-35.0); Mean Corpuscular Hemoglobin 31.1 pg (27.0-33.0); Mean Corpuscular Volume 93.4 fL (80.0-98.0); Mean Platelet Volume 10.9 fL (9.4-12.3); Monocytes Absolute Auto 0.7 X10*3/uL (0.1-1.2); Monocytes Percent Auto 11.2 % (2-11); Neutrophils Absolute Auto 2.2 x10*3/uL (2.0-8.3); Platelet Count 271 X10*3/uL (160-400); Red Blood Count 4.72 X10*6/uL (4.20-5.50); White Blood Count 6.5 X10*3/uL (4.8-10.8)
[2024-08-31 12:01] LABS: Estimated Average Glucose 111 mg/dL; Hemoglobin A1C 142.9067 umol/L; Hemoglobin A1c % 5.5 % (<6.0); Total Hemoglobin (HGBA1C) 3859.6732 umol/L
[2024-08-31 12:28] LABS: Alanine Aminotransferase 34 U/L (0-31); Albumin Level 4.3 g/dL (3.5-5.0); Anion Gap 13 (12-20); Aspartate Amino Transferase 32 U/L (5-31); Bilirubin Direct 0.1 mg/dL (0.0-0.5); Bilirubin Total 0.5 mg/dL (0.0-1.0); Blood Urea Nitrogen 17 mg/dL (9-16); Carbon Dioxide 26 mmol/L (22-29); Chloride 106 mmol/L (96-108); Cholesterol 292 mg/dL (<200); Estimated Glomerular Filt Rate > 60; Glucose Fasting 105 mg/dL (60-99); HDL Cholesterol 52 mg/dL (>40); LDL Cholesterol Calculated 194 mg/dL (<100); Potassium 3.8 mmol/L (3.3-5.1); Sodium 141 mmol/L (135-145); Total Protein 7.6 g/dL (6.5-8.0); Triglycerides 232 mg/dL (<150)
--- OUTSIDE RECORDS SUMMARY | 2024-08-31 13:02 | XMS_ITS ---
Author Organization Jeff Lopes MD Address [address] [place] [id number] Care Team Providers Care Revenue Field Auditor Name Role Phone Jeff Lopes Primary Care Provider REASON FOR VISIT Hydrocortisone perianal cream 2.5% Medications Medication SIG (Take, Route, Frequency, Duration) Notes Start Date End Date Status Hydrocortisone (Perianal) 2.5 % 1 application Externally Twice a day for 30 days 07/15/2024 Active Encounters Encounter Location Date Provider Diagnosis Jeff Lopes MD [address] [place] [address] [place] [phone] 07/13/2024 Jeff Lopes Plan Of Treatment Medication Medication Name Sig Start Date Stop Date Notes Hydrocortisone (Perianal) 2.5 % 1 applic ation Externally Twice a day for 30 days 07/15/2024 Next Appt Details Provider Name:Jeff Zuniga ier, 09/07/2024 09:30:00 AM, [address] [place] [address], [address], [phone], Progress Notes * Antonette WILLINGHAM EDOB:[birth year] (79 yo F)Acc No.[id number]:07/13/2024 Patient:?Antonette Willingham :1945???Age:79 Y???Sex:Female Address:[address] [place] [address] * Refills? Start Hydrocortisone (Perianal) Cream, 2.5 %, Externally, 60, 1 application, Twice a day, 30 days, Refills=2 * true * Date:? Generated for Vishal negrete/Oscar/Leaitting on:?08/31/2024 01:02 PM EST
--- OUTSIDE RECORDS SUMMARY | 2024-08-31 13:02 | XMS_ITS ---
Author Organization [facility] Address [address] [place] [address] Care Team Providers Care Oral Surgeon Name Role Phone JamiSilver noriega Primary Care Provider Laciea Lilian Dorsey [phone] REASON FOR VISIT cx cv/cvn cv tsc system operator appt Problems No Known Problems Encounters Encounter Location Date Provider Diagnosis [facility] [address] [place] [address] 01/06/2024 Lilian Nelson Plan Of Treatment No Information Progress Notes * Antonette WILLINGHAM EDOB:[birth year] (78 yo F)Acc No.[id number]:01/06/2024 Patient:?Antonette Willingham :1945???Age:78 Y???Sex:Female Address:[address] [place] [address], * true * Date:? Generated for Printi ng/Fapietrog/eTransmitting on:?08/31/2024 01:02 PM EST
--- OUTSIDE RECORDS SUMMARY | 2024-08-31 13:03 | XMS_ITS ---
Author Organization [facility] Address [address] [place] [address] Care Team Providers Care Firer Low Pressure Name Role Phone JamiSilver noriega Primary Care Provider Laciea Lilian Dorsey Unavailable [phone] REASON FOR VISIT ON Problems No Known Problems Encounters Encounter Location Date Provider Diagnosis [facility] [address] [place] [address] 12/01/2023 Lilian Nelson Plan Of Treatment No Information Progress Notes * Antonette WILLINGHAM EDOB:[birth year] (78 yo F)Acc No.[id number]:12/01/2023 Patient:?Antonette Willingham :1945???Age:78 Y???Sex:Female Address:[address] [place] [address], * true * Date:? Generated for Printi caden/Oscar/eTransmitting on:?08/31/2024 01:03 PM EST
--- OUTSIDE RECORDS SUMMARY | 2024-08-31 13:03 | XMS_ITS ---
Author Organization Jeff Lopes MD Address [address] [place], [place] [id number] Care Team Providers Care Knitter Helper Name Role Phone Jeff Lopes Primary Care Provider [phone] Results Component Value Reference Range Notes Complete Blood Count Auto Di ff (Not yet reviewed by provider) Interpretation: Performing Lab:[facility], [address] [place] [address] Notes/Report: White Blood Count 6.5 4.8-10.8 X10*3/uL Red Blood Count 4.72 4.20-5.50 X10*6/uL Hemoglobin 14.7 12.0-16.0 g/dl Hematocrit 44.1 37.0-47.0 % Mean Corpuscular Volume 93.4 80.0-98.0 fL Mean Corpuscular Hemoglobin 31.1 27.0-33.0 pg Mean Corpuscular HGB Conc 33.3 31.0-35.0 g/dl Red Cell Distribution Width 13.0 11.0-16.0 % Platelet Count 271 160-400 X10*3/uL Mean Platelet Volume 10.9 9.4-12.3 fL Neutrophils Percent Auto 34.0 45-73 % Imm Gran Pct Auto 0.2 0.0-0.4 % Lymphocytes Percent Auto 50.7 20-40 % Monocytes Percent Auto 11.2 2-11 % Eosinophils Percent Auto 3.1 0-4 % Basophils Percent Auto 0.8 0-2 % NRBC Pct Auto 0.0 0.0-0.2 /100WBC Neutrophils Absolute Auto 2.2 2.0-8.3 x10*3/u L Imm Gran Abs Auto 0.01 0.00-0.03 X10*3/uL Lymphocytes Absolute Auto 3.3 1.2-4.9 X10*3/u L Monocytes Absolute Auto 0.7 0.1-1.2 X10*3/uL Eosinophils Absolute Auto 0.2 0.0-0.4 X10*3/u L Basophils Absolute Auto 0.1 0.0-0.2 X10*3/uL NRBC Abs Auto 0.000 0.0-0.012 X10*3/uL Hemoglobin A1c (Not yet revi ewed by provider) Interpretation: Performing Lab:[facility], [address] [place] [id number] Notes/Report: Hemoglobin A1c % 5.5 <6.0 % Hemoglobin A1C Reference Range Adults: 4.8 - 6.0 % Non diabetic: < 6.0 % Goal: < 7.0 % Additional Action Suggested: > 8.0 % Note: Hemoglobin A1c results are invalid for patients with abnormal amounts of HbF. Blood transfusions may impact the HbA1c concentration in the patient sample. Estimated Average Glucose 111 eAG = Estimated average glucose which is %A1C expressed as average glucose, using the formula of the [id number] Average Glucose study (ADAG), Diabetes Care, Vol.31,#8, Mar. 2007 REASON FOR VISIT FASTING LABS Encounters Encounter Location Date Provider Diagnosis Jeff Lopes MD [address] [place] [address] [address] [place], [place] [phone] 08/31/2024 Jeff Lopes Essential hypertensi on I10 ; Prediabetes R73.09 ; Pure hypercholesterolemia E78.00 ; Elevated LFTs R79.89 and Lymphocytosis D72.820 Assessments Encounter Date Diagnosis (ICD Code) Assessment Notes Treatment Notes Treatment Clinical Notes Section Notes 08/31/2024 Essential hypertensi on (ICD-10 - I10) 08/31/2024 Prediabetes (ICD-10 - R73.09) 08/31/2024 Pure hypercholesterolemia (ICD-10 - E78.00) 08/31/2024 Elevated LFTs (ICD-1 0 - R79.89) 08/31/2024 Lymphocytosis (ICD-1 0 - D72.820) Plan Of Treatment Pending Test Test Name Order Date Complete Blood Count Auto Diff 01/24/202 5 Comprehensive [place]anna. Panel Fast Liver Panel 08/31/2024 Lipid Panel 08/31/2024 Microalbumin, Random 08/31/2024 Hemoglobin A1c 08/31/2024 UA ClnCatch+Micro w/rflx Cult 08/31/2024 Next Appt Details Provider Name:Jeff riveror, 09/07/2024 09:30:00 AM, [address], [address], [place], [place], [phone], Progress Notes * BILL Antonette EDOB:[birth year] (79 yo F)Acc No.[id number]:08/31/2024 Progress Note Patient:?BILLAntonette Provider:?Jeff Lopes MD :1945???Age:79 Y???Sex:Female D ate:08/31/2024 Address:[address] [place] [id number] Subjective: * Chief Complaints: * ???1. FASTING LABS. * Medical History:? Objective: * Vitals:? Assessment: * Assessment: 1.?Essential hypertension - I10 (Primary)???2.?Prediabetes - R73.09???3.?Pure hypercholesterolemia - E78.00???4.?Elevated LFTs - R79.89???5.?Lymphocytosis - D72.820??? Plan: * Treatment: 2.?Prediabetes?LAB: Complete Blood Count Auto Diff (Collection Date & Time - 08/31/2024 08:00 AM) ?LAB: Comprehensive [place]. Panel Fast ?LAB: Liver Panel ?LAB: Lipid Panel ?LAB: Microalbumin, Random ?LAB: Hemoglobin A1c (Collection Date & Time - 08/31/2024 08:00 AM) ?LAB: UA ClnCatch+Micro w/rflx Cult 3.?Pure hypercholesterolemia ?LAB: Complete Blood Count Auto Diff (Collection Date & Time - 08/31/2024 08:00 AM) ?LAB: Comprehensive [place]. Panel Fast ?LAB: Liver Panel ?LAB: Lipid Panel ?LAB: Microalbumin, Random ?LAB: Hemoglobin A1c (Collection Date & Time - 08/31/2024 08:00 AM) ?LAB: UA ClnCatch+Micro w/rflx Cult 4.?Elevated LFTs?LAB: Complete Blood Count Auto Diff (Collection Date & Time - 08/31/2024 08:00 AM) ?LAB: Comprehensive [place]. Panel Fast ?LAB: Liver Panel ?LAB: Lipid Panel ?LAB: Microalbumin, Random ?LAB: Hemoglobin A1c (Collection Date & Time - 08/31/2024 08:00 AM) ?LAB: UA ClnCatch+Micro w/rflx Cult 5.?Lymphocytosis?LAB: Complete Blood Count Auto Diff (Collection Date & Time - 08/31/2024 08:00 AM) ?LAB: Comprehensive [place]. Panel Fast ?LAB: Liver Panel ?LAB: Lipid Panel ?LAB: Microalbumin, Random ?LAB: Hemoglobin A1c (Collection Date & Time - 08/31/2024 08:00 AM) ?LAB: UA ClnCatch+Micro w/rflx Cult * Procedure Codes:?52109 VENIP UNCT, ROUTINE* * * The named appointment provid er may or may not be the originator of this progress note, and it is not deemed complete until electronically signed by the appointment provider. Sign off status: Pending * Provider:?Jeff Lopes MD Date:?0 08/31/2024 Generated for Vishal negrete/Oscar/eTransmitting on:?08/31/2024 01:02 PM EST
--- OUTSIDE RECORDS SUMMARY | 2024-08-31 13:03 | XMS_ITS | Clinical Summary ---
Author Organization [facility] [employer] [facility] Address [address] [place] [address] Care Team Providers Care Credit And Collection Manager Name Role Phone Unavailable Primary Care Provider Unavailabl e Social History Tobacco Use Types Packs/Day Years Used Date Smoking Tobacco: Never Assessed Sex and Gender Information Value Date Recorded Sex Assigned at Not on file Gender Identity Not on file Sexual Orientation Not on file Plan of Treatment Upcoming Encounters Date Type Department Care Team (Late st Contact Info) Description 11/26/2024 9:00 AM EDT Appointment [facility] [address] [phone] Health Maintenance Due Date Last Done Comments DTaP,Tdap,and Td Vaccines (1 - Tdap) 1965 Zoster Vaccines (1 of 2) 1996 Pneumococcal Vaccine: 65+ Ye ars (1 of 1 - PCV) 2011 RSV Immunization Patients 60 + Years Old (1 - 1-dose 75+ series) 2021 Depression Screening 07/07/2022 Falls Risk Assessment 07/07/2022 Hepatitis C Screening 07/07/2022 Medicare Annual Wellness Visit 07/07/2022 Osteoporosis Screening (Bone Density Screening) 07/07/2022 Social Influencers of Health Screening 07/07/2022 COVID-19 Vaccine ( - 2023-2 5 season) 2024 Influenza Vaccine (#1) 2024 HIB Vaccines Aged Out No longer eligi ble based on patient's age to complete this topic HPV Vaccines Aged Out No longer eligi ble based on patient's age to complete this topic Hepatitis A Vaccines Aged Out No long er eligible based on patient's age to complete this topic Hepatitis B Vaccines Aged Out No long er eligible based on patient's age to complete this topic IPV Vaccines Aged Out No longer eligi ble based on patient's age to complete this topic MMR Vaccines Aged Out No longer eligi ble based on patient's age to complete this topic Meningococcal ACWY Vaccine Aged Out N o longer eligible based on patient's age to complete this topic RSV Immunization Patients Un kraig 20 months Aged Out No longer eligible b ased on patient's age to complete this topic Varicella Vaccines Aged Out No longer eligible based on patient's age to complete this topic
--- OUTSIDE RECORDS SUMMARY | 2024-08-31 13:03 | XMS_ITS ---
Author Organization [facility] Address [address] [place] [address] Care Team Providers Care Instantizer Operator Name Role Phone CarrilloSilver belle Primary Care Provider Lilian Morales Unavailable [phone] Allergies Allergen (clinical drug ingredient) Drug/Non Drug Allergy documented on EMR Reaction Allergy Type Onset Date Status meperidine Demerol spinning Drug Allergy Active Medications Medication SIG (Take, Route, Frequency, Duration) Notes Start Date End Date Status amLODIPine Besylate 5 MG Orally Active Lisinopril-hydroCHLOROthi azide 20-12.5 MG 1 tablet Once a day Acti ve Simvastatin 20 MG 1 tablet in the even ing Once a day Active Vitamin D Active Fish Oil Active Aspirin 84 mg 1 tablet Orally Once a day Not-Taking Multivitamin Active Social History Alcohol Screen Question Answer Notes Did you have a drink containing alcohol in the p ast year? No Points 0 Interpretation Negative Tobacco use other than smoking: Question Answer Notes Are you an other tobacco user? No Problems No Known Problems Vital Signs Height 5ft 2in in 01/11/2024 Weight 130 lbs 01/11/2024 BMI 23.77 kg/m2 01/11/2024 Encounters Encounter Location Date Provider Diagnosis [facility] [address] [place] [address] 01/11/2024 Lilian Nelson Plan Of Treatment No Information Progress Notes * Antonette WILLINGHAM EDOB:[birth year] (79 yo F)Acc No.[id number]:01/11/2024 Progress Notes Patient:?Antonette WILLINGHAM Provider:?Lilian Nelson DPM :1945???Age:78 Y???Sex:Female D ate:01/11/2024 Address:[address] [place] [address] Pcp:Silver Lopes Subjective: * Chief Complaints: * ??? * ROS:?General/Constitutional:?Nausea?denies.?Vomiting?denies.?Hunger Thirst?denies.?Loss appetite?denies.?Chills?denies.?Fatigue?denies.?Fever?denies.?Night Sweats?denies.?Unexplained weight loss?denies.?Unexplained weight gain?denies.?HEENTM:?Dentures?denies.?Dizziness?denies.?Glasses/contacts?denies.?Retinopathy?de nies.?Blurred/double vision?denies.?TMJ?denies.?Discharge/drainage?denies.?Implants?denies.?Sore throat?denies.?Dental implants?denies.?Hard of hearing ?denies.?Difficulty chewing/swallowing/speaking?denies.?Nose bleeds?denies.?Sore mouth?denies.?Respiratory:?On Oxygen?denies.?Pneumonia/pleurisy?denies.?Bronchitis?denies.?Emphysema?denies.?C oughing?denies.?Cough blood?denies.?Shortness of breath?denies.?Wheezing?denies.?Cardiovascular:?Pacemaker?denies.?MVP?denies.?WPW?denies.?CHF?denies.?Heart attack?denies.?Septal defect?denies.?Rapid beat?denies.?Chest pain ?denies.?Atrial Fib.?denies.?Murmur/Palpitations?denies.?Gastrointestinal:?Hemorrhoids?denies.?Stomach/Abdominal pain?denies.?Dark blood stool?denies.?Irritable bowel ?denies.?Constipation?denies.?Diarrhea?denies.?Hematology:?Swelling?denies.?Clots?denies.?Varicose Veins?denies.?Bruising?denies.?Bleeding problem?denies.?Genitourinary:?Blood urine?denies.?Frequent/Painfu/urination/bladder control?denies.?Kidney stones?denies.?Infection (UTI)?denies.?Nephropathy?denies.?sex trans dis (STD)?denies.?Prostate?denies.?Musculoskeletal:?Hammertoes?denies.?Bunions?denies.?Back Pain?denies.?Muscle Cramps/ Resting?denies.?Muscle cramps / walking?denies.?Generalized aches and pains?denies.?Weakness?denies.?Integ.:?[place]?denies.?Scars?denies.?Corns/calluses?denies.?Ingrown nails?denies.?Painful nails?denies.?Open Sores?denies.?Rashes?denies.?Neurologic:?Difficulty sleeping?denies.?Brain disorder?denies.?Numbness?denies.?Balance trouble?denies.?Confusion?denies.?Fainting/blackouts?denies.?Tingling?denies.?Tr emors?denies.? * Medical History:?Cholesterol , High blood pressure, Mumps, Chicken pox, Arthritis, Back,Hip,and Knee pain, Measles. * Surgical History:?yasemin noriega 2004. * Family History:?Mother: dece ased, diagnosed with Unspecified cerebral artery occlusion with cerebral infarction.?Father: , diagnosed with Unspecified essential hypertension, Unspecified heart disease.? * Social History:?Tobacco Use:?Tobacco Use/Smoking?Are you a:: nonsmoker , Additional Findings: Tobacco Non-User: Current non-smoker.?Tobacco use other than smoking?Are you an other tobacco user??No ???Drugs/Alcohol:?Drugs?Have you used drugs other than those for medical reasons in the past 12 months??No ?Alcohol Screen?Did you have a drink containing alcohol in the past year??No ?Points?0 ?Interpretation?Negative ???Miscellaneous:?Caffeine: yes, 1-2 cups per day. ?Children: yes. ?Exercise: walking, skiing. ?Marital status: . * Medications:?Taking Multivit jacome , Taking Simvastatin 20 MG Tablet 1 tablet in the evening Once a day , Taking amLODIPine Besylate 5 MG Tablet Orally , Taking Lisinopril-hydroCHLOROthiazide 20-12.5 MG Tablet 1 tablet Once a day , Taking Fish Oil , Taking Vitamin D , Not-Taking/PRN Aspirin 84 mg 1 tablet Orally Once a day * Allergies:?Demerol: spinning . Objective: * Vitals:?Ht: 5ft 2in, Wt: 130 , BMI: 23.77, Ht-cm: 157.48 cm, Wt-k.97 kg. Assessment: Plan: * Treatment: * Images: * The named appointment provid er may or may not be the originator of this progress note, and it is not deemed complete until electronically signed by the appointment provider. Sign off status: Pending * Provider:?Lilian Nelson DPM Date:?12/2023 Generated for Vishal negrete/Oscar/Eldon on:?08/31/2024 01:03 PM EST
--- OUTSIDE RECORDS SUMMARY | 2024-08-31 13:03 | XMS_ITS ---
Author Organization Jeff Lopes MD Address [address] [facility] [address] [place] [phone] Care Team Providers Care Behavioral Technician Name Role Phone Jeff Lopes Primary Care Provider [phone] Medications Medication SIG (Take, Route, Frequency, Duration) Notes Start Date End Date Status Hydrocortisone [place]-Pramoxine 2.5-1 % 1 application Externally Twice a day for 14 days 07/13/2024 Active Encounters Encounter Location Date Provider Diagnosis Jeff Lopes MD [address] [place] [address] [address] [place] [phone] 07/13/2024 Jeff Lopes Plan Of Treatment Medication Medication Name Sig Start Date Stop Date Notes Hydrocortisone [place]-Pramoxine 2.5-1 % 1 application Externally Twice a day for 14 days 07/13/2024 Next Appt Details Provider Name:Jeff Zuniga ier, 09/07/2024 09:30:00 AM, [address] [place] [address], [address] [place] [address], [phone], Progress Notes * Antonette WILLINGHAM EDOB:[birth year] (79 yo F)Acc No.[id number]:07/13/2024 Patient:?Antonette Willingham :1945???Age:79 Y???Sex:Female Address:[address] [place] [address] * Refills? Start Hydrocortisone [place]-Pramoxine Cream, 2.5-1 %, Externally, 30, 1 application, Twice a day, 14 days, Refills=4 * true * Date:? Generated for Vishal negrete/Oscar/Leaitting on:?08/31/2024 01:03 PM EST
--- OUTSIDE RECORDS SUMMARY | 2024-08-31 13:04 | XMS_ITS | Patient Health Record ---
Author Organization [facility] Address [address] [place] [address] Care Team Providers Care Chain Link Fence Installer Name Role Phone Silver Lopes Primary Care Provider Lilian Morales Unavailable [phone] Allergies Allergen (clinical drug ingredient) Drug/Non Drug Allergy documented on EMR Reaction Allergy Type Onset Date Status meperidine Demerol spinning Drug Allergy Active Reason For Referral No Information Medications Medication SIG (Take, Route, Frequency, Duration) Notes Start Date End Date Status amLODIPine Besylate 5 MG Orally Active Lisinopril-hydroCHLOROthi azide 20-12.5 MG 1 tablet Once a day Acti ve Aspirin 84 mg 1 tablet Orally Once a day Not-Taking Multivitamin Active Simvastatin 20 MG 1 tablet in the even ing Once a day Active Vitamin D Active Fish Oil Active Social History Alcohol Screen Question Answer Notes Did you have a drink containing alcohol in the p ast year? No Points 0 Interpretation Negative Tobacco use other than smoking: Question Answer Notes Are you an other tobacco user? No Problems No Known Problems Encounters Encounter Location Date Provider Diagnosis [facility] [address] [place] [address] 12/01/2023 Lilian Nelson [facility] [address] [place] [address] 01/06/2024 Lilian Nelson Plan Of Treatment No Information Insurance Providers Payer Name Payer Address Payer Phone Subscriber Number Group Number Insured Name Patient Relationship to Insured Coverage Start Date Coverage End Date Medicare National Govt Svcs Inc [address] [place] [phone] [id number] Antonette Willingham Self - patient is the insured 1 AARP Secondary to Medicare [address] [place] [address] [id number] Antonette Willingham Self - patient is the insured Medical (General) History Medical History History ICD Code Cholesterol High blood pressure Mumps Chicken pox Arthritis Back,Hip,and Knee pain Measles Surgical History Surgery Date(Month/Year) gall bladder 2005
[2024-08-31 14:25] LABS: Alkaline Phosphatase 78 U/L (39-117)
== END 2024-08-31 08:01 | disposition home or self-care (01) ==
LOC: HO.LNP 08:00
PROVIDERS: Visit Provider Internal Medicine
DX: I10 Essential (primary) hypertension (principal); R73.09 Other abnormal glucose; E78.00 Pure hypercholesterolemia, unspecified; R79.89 Other specified abnormal findings of blood chemistry; D72.820 Lymphocytosis (symptomatic)
CPT/HCPCS: 80053; 80061; 80076; 82248; 83036; 85025

== ENCOUNTER 2024-09-07 10:40 | Outpatient (REF) | payer MEDICARE, SELFPAY ==
[2024-09-07 11:20] LABS: Appearance Urine Cloudy; Color Urine Yellow; Glucose Urine UA Negative (Negative); Leukocyte Esterase Urine Large (3+) (Negative); Nitrite Urine Positive (Negative); PH 5.5 (5.0-9.0); UMIC TRIGGER UACC YES; Urine Blood Negative (Negative); Urine Ketones Negative (Negative); Urine Protein Negative (Neg-Trace)
--- OUTSIDE RECORDS SUMMARY | 2024-09-07 11:22 | XMS_ITS | Clinical Summary ---
Author Organization [facility] it[facility] Address [address] [place] [address] Care Team Providers Care Supervisor Motor Vehicle Assembly Name Role Phone Unavailable Primary Care Provider [...] AM EDT Appointment [facility] at [address] [address] Health Maintenance Due Date Last [...]
[2024-09-07 11:26] LABS: Bacteria Urine 4+ (None Seen); Hyaline Casts Urine 0-2 /LPF (0-2); RBC Urine 0-2 /HPF (0-2); Squamous Epithelial Cell Urine 0-2 /HPF (0-2); UACC Culture Trigger YES; WBC Urine 21-50 /HPF (0-5)
[2024-09-07 12:21] LABS: Creatinine Urine 53.87 mg/dL; Microalbumin Urine < 5.0 mg/L
== END 2024-09-07 10:41 | disposition home or self-care (01) ==
LOC: HO.LNP 10:40
PROVIDERS: Visit Provider Internal Medicine
DX: I10 Essential (primary) hypertension (principal); R73.09 Other abnormal glucose
CPT/HCPCS: 81001; 82043; 82570; 87086; 87088; 87186

== ENCOUNTER 2024-10-11 08:13 | Outpatient (AMB) | payer MEDICARE, SELFPAY ==
[2024-10-11 08:16] VITALS: BP 160/72; PULSE 99; BMI 26.4
--- NOTE | 2024-10-11 08:16 | A.OFFVIS_ITS ---
Vital Signs 10/11/24 08:16 Height 5 ft Weight 135 lb 5.821 oz BMI 26.4 BP 160/72 H Blood Pressure Location Lt brachial Position Sitting Pulse 99 Pulse Source Monitor Intake Visit Reasons: Follow up Berry Picker Machine Operator Required: No Allergies meperidine [From DEMEROL] Allergy (Unknown, Verified 10/11/24 08:18) AGITATION Cfgdqdz-GFJ-DqC Reductase Inhibitor Adverse Reaction (Intermediate, Verified 10/11/24 09:00) Muscle pain and cramping Medication List - Last Reconciled 10/11/24 by Leda Veliz SEISMOGRAPH OPERATOR HELPER-C amlodipine 5 mg PO DAILY lisinopril-hydrochlorothiazide 20-12.5 mg 1 tab PO DAILY HPI HPI Follow up: Details: Antonette is a 79-year-old female with past medical history of hypertension, hyperlipidemia, right bundle branch block who presents for follow-up. Today she reports she has been doing well since her last visit on 07/12/2023. She says she retry statins and was unable to tolerate with muscle pain and cramping. She is currently not on any cholesterol-lowering agents. She tells me she has white coat syndrome and that her blood pressure is always high in the doctor's office. She has been following with her PCP who tells her that her blood pressure is okay. She is compliant with her medications. No chest discomfort, shortness of breath, heart palpitations, lightheadedness. Good activity tolerance. [facility] Medical History HLD (hyperlipidemia) HTN (hypertension) Social History Alcohol intake: never Patient Tobacco Use Status: Never used Tobacco Review of Systems Const All systems reviewed & are unremarkable except as noted in HPI and below Card Denies chest pain, Denies chest pain at rest, Denies chest pain with activity, Denies rapid heart rate, Denies leg edema, Denies dyspnea, Denies dyspnea on exertion and Denies orthopnea Resp Denies dyspnea and Denies dyspnea on exertion Musc Details: muscle ache cramping with statin use Denies no additional complaints Physical Exam Vital Signs: Last Vital Signs Pulse 99 10/11/24 08:16 BP 160/72 H 10/11/24 08:16 BMI result Body Mass Index 26.4 Const General: cooperative, healthy appearing, comfortable and no acute distress Orientation/consciousness: patient oriented x3 Neck Neck: Yes normal visual inspection Resp Effort & Inspection: normal respiratory effort Auscultation: clear to auscultation bilaterally, no crackles, no rales, no rhonchi and no wheezes Cardio Rate: regular rate Rhythm: regular rhythm Heart sounds: S1 normal heart sound present, S2 normal heart sound present, no murmurs and no rubs Neuro General: patient oriented x3 Extrem General: Yes normal to inspection and No no pedal edema Psych Appearance: grossly normal Mental Status: mental status grossly normal Speech and movement: Normal speech and movement present Office Procedures EKG Details: Today, by me, normal sinus rhythm, right bundle branch block, low-voltage QRS, rate 99, no significant change from prior. [id number], Complete Assessment & Plan Assessment & Plan (1) HLD (hyperlipidemia): Code(s): E78.5 - Hyperlipidemia, unspecified Category: Medical Qualifiers: Hyperlipidemia type: unspecified Qualified Code(s): E78.5 - Hyperlipidemia, unspecified Plan: History of hyperlipidemia and intolerant to statins and Zetia with muscle pain and cramping. Has previously tried atorvastatin, rosuvastatin, simvastatin. [place] LDL goal less than 100. Labs done on 08/31/2024 showed LDL 194. Benefits of good cholesterol control reviewed with her. Will order PCSK9 inhibitor, Repatha. Once approved we will have our office nurse instructor on its use. One she has been on it 6-8 weeks will recheck a fasting lipid profile. She is agreeable to this plan. Cardiology office visit can be 1 year, sooner if needed (2) Chest discomfort: Code(s): R07.89 - Other chest pain Category: Medical Plan: Prior reports chest discomfort with ER evaluation 06/2023, ruling out for ACS. She underwent an echocardiogram on 06/16/2023 showing EF 60-65%, impaired relaxation, no valve abnormalities, normal RV. Exercise nuclear stress test done 06/17/2023 with exercise 5 minutes, no anginal symptoms, no EKG changes, normal myocardial perfusion imaging t.i.d. is not present. (Actual report conclusions states t.i.d. is present however in the body of the report it states not present. Confirmed with Dr. Shepard that Not present is correct). EKG done today showing normal sinus rhythm, right bundle branch block, unchanged from prior. Currently has no anginal symptoms. Continue with cardiac risk factor modification. (3) RBBB (right bundle branch block): Code(s): I45.10 - Unspecified right bundle-branch block Category: Medical Plan: Not new. Cardiac testing as above (4) HTN (hypertension): Code(s): I10 - Essential (primary) hypertension Category: Medical Qualifiers: Hypertension type: primary hypertension Qualified Code(s): I10 - Essential (primary) hypertension Plan: Mild elevation today. Patient states it is because she is in the office. Recheck done by me 148/68. Home blood pressures reported as normal. Blood pressure managed by her PCP. She is currently on amlodipine and lisinopril/hydrochlorothiazide combination pill. -no changes made Plan Time spent on chart review, documentation, interview and assessment Orders: Orders Lipid Panel 2 Months E78.5 - Hyperlipidemia, unspecified Medications: New evolocumab (Repatha SureClick) 140 mg subcut Q2W 6 mL 3RF 90 days Coding Level of Care Code Est Pt Level 4 (16755) Complex EM visit Add On G2211 Diagnoses Hyperlipidemia, unspecified hyperlipidemia type E78.5 Hyperlipidemia type: unspecified Chest discomfort R07.89 RBBB (right bundle branch block) I45.10 Primary hypertension I10 Hypertension type: primary hypertension CPT Codes EKG - CPT: 13723-Gyjlqvwocjcvsxcav, Complete ([id number]) Time Spent (min) 28
--- OUTSIDE RECORDS SUMMARY | 2024-10-11 08:32 | XMS_ITS ---
Author Organization [facility] Address [address] [place] [address] Care Team Providers Care Fixture Designer Name Role Phone JamiSilver noriega Primary Care Provider Laciea Lilian Dorsey [phone] REASON FOR VISIT cx manager mail appt Problems No Known Problems Encounters Encounter Location Date Provider Diagnosis [facility] [address] [place] [address] 01/06/2024 Lilian Nelson Plan Of Treatment No Information Progress Notes * Antonette WILLINGHAM EDOB:[birth year] (78 yo F)Acc No.[id number]:01/06/2024 Patient:?Antonette Willingham :1945???Age:78 Y???Sex:Female Address:[address] [place] [address], * true * Date:? Generated for Printi ng/Fapietrog/eTransmitting on:?10/11/2024 08:32 AM EST
--- OUTSIDE RECORDS SUMMARY | 2024-10-11 08:32 | XMS_ITS | Clinical Summary ---
Author Organization [facility] ity Address [address] [place] [address] Care Team Providers Care All Source Collection Manager Name Role Phone Unavailable Primary Care Provider Unavailabl e Social History Tobacco Use Types Packs/Day Years Used Date Smoking Tobacco: Never Assessed Comments Unknown Sex and Gender Information Value Date Recorded Sex Assigned at Not on file Legal Sex Female 2:24 PM EST Gender Identity Not on file Sexual Orientation Not on file Plan of Treatment Upcoming Encounters Date Type Department Care Team (Late st Contact Info) Description 11/26/2024 9:00 AM EDT Appointment [facility] at [address] [address] Health Maintenance Due Date Last Done Comments DTaP,Tdap,and Td Vaccines (1 - Tdap) 1965 Pneumococcal Vaccine: 50+ Ye ars (1 of 1 - PCV) 1996 Zoster Vaccines (1 of 2) 1996 RSV Immunization Patients 60 + Years Old (1 - 1-dose 75+ series) 2021 Depression Screening 07/07/2022 Falls Risk Assessment 07/07/2022 Hepatitis C Screening 07/07/2022 Medicare Annual Wellness Visit 07/07/2022 Osteoporosis Screening (Bone Density Screening) 07/07/2022 Social Influencers of Health Screening 07/07/2022 COVID-19 Vaccine (2023-2 5 season) 2024 Influenza Vaccine (#1) 2024 [...] patient's age to complete this topic Meningococcal B Vacine Aged Out No lo nger eligible based on patient's age to complete this topic RSV Immunization Patients Un kraig 20 months Aged Out No longer eligible b ased on patient's age to complete this topic Varicella Vaccines Aged Out No longer eligible based on patient's age to complete this topic Insurance MEDICARE [facility]
--- OUTSIDE RECORDS SUMMARY | 2024-10-11 08:32 | XMS_ITS ---
Author Organization Jeff Lopes MD Address [address] [place] [address] [place] [phone] Care Team Providers Care Spring Forger Name Role Phone Jeff Lopes Primary Care Provider [phone] REASON FOR VISIT UTI Encounters Encounter Location Date Provider Diagnosis Jeff Lopes MD [address] [place] [address] [place] [phone] 09/17/2024 Jeff Lopes Plan Of Treatment Next Appt Details Provider Name:Jeff foster, 02/28/2025 07:45:00 AM, [address] [place] [address], [address], [phone], Provider Name:Jeff foster, 03/07/2025 10:45:00 AM, [address] [place] [address], [address], [phone], Provider Name:Jeff foster, 09/05/2025 07:30:00 AM, [address] [place] [address], [address], [id number], Provider Name:Jeff foster, 09/12/2025 08:30:00 AM, [address] [place] [address], [address], [phone], Progress Notes * Antonette WILLINGHAM EDOB:[birth year] (79 yo F)Acc No.[id number]:09/17/2024 Patient:?Antonette WILLINGHAM :1945???Age:79 Y???Sex:Female Address:[address] [place] [address], [place] * true * Date:? Generated for Vishal negrete/Oscar/Leaitting on:?10/11/2024 08:32 AM EST
--- OUTSIDE RECORDS SUMMARY | 2024-10-11 08:33 | XMS_ITS ---
Author Organization Jeff Lopes MD Address [address] [place] [phone] Care Team Providers Care Registered Phlebotomist Part Time Name Role Phone Jeff Lopes Primary Care Provider REASON FOR VISIT UTI Medications Medication SIG (Take, Route, Frequency, Duration) Notes Start Date End Date Status Cipro 250 MG 1 tablet Orally every 12 hrs for 5 days 09/17/2024 Active Encounters Encounter Location Date Provider Diagnosis Jeff Lopes MD [address] [place] [address] [place] [phone] 09/17/2024 Jeff Lopes Plan Of Treatment Medication Medication Name Sig Start Date Stop Date Notes Cipro 250 MG 1 tablet Orally every 12 hrs for 5 days 09/17 Next Appt Details Provider Name:Jeff foster, 02/28/2025 07:45:00 AM, [address] [place] [address], [phone], Provider Name:Jeff foster, 03/07/2025 10:45:00 AM, [address] [place] [address], [phone], Provider Name:Jeff foster, 09/05/2025 07:30:00 AM, [address] [place] [address], [phone], Provider Name:Jeff foster, 09/12/2025 08:30:00 AM, [address] [place] [address], [id number], Progress Notes * Antonette WILLINGHAM EDOB:[birth year] (79 yo F)Acc No.[id number]:09/17/2024 Patient:?Antonette WILLINGHAM :1945???Age:79 Y???Sex:Female Address:[address] [place] [address] * Refills? Start Cipro Tablet, 250 MG, Orally, 10 Tablet, 1 tablet, every 12 hrs, 5 days * Addendum: * ? true * Date:? Generated for Vishal negrete/Oscar/eTransmitting on:?10/11/2024 08:32 AM EST
--- OUTSIDE RECORDS SUMMARY | 2024-10-11 08:33 | XMS_ITS ---
Author Organization [facility] Address [address] [place] [address] Care Team Providers Care Mail Processing Associate Name Role Phone CarrilloSilver belle Primary Care Provider Lilian Morales Unavailable [phone] Allergies Allergen (clinical drug ingredient) Drug/Non Drug [...] 01/11/2024 Encounters Encounter Location Date Provider Diagnosis [facility] [address] [place] [address] 01/11/2024 Lilian Nelson Plan Of Treatment No Information Progress Notes * Antonette WILLINGHAM EDOB:[birth year] (79 yo F)Acc No.[id number]:01/11/2024 Progress Notes Patient:?Antonette WILLINGHAM Provider:?Lilian Neslon DPM :1945???Age:78 Y???Sex:Female D ate:01/11/2024 Address:[address] [place] [address] Pcp:Silver Lopes Subjective: * Chief Complaints: * [...] Nelson DPM Date:?12/2023 Generated for Vishal negrete/Oscar/Eldon on:?10/11/2024 08:32 AM EST
--- OUTSIDE RECORDS SUMMARY | 2024-10-11 08:33 | XMS_ITS ---
Author Organization [facility] Address [address] [place] [address] Care Team Providers Care Truck Dock Material Mover Name Role Phone JamiSilver noriega Primary Care Provider Laciea Lilian Dorsey Unavailable [phone] REASON FOR VISIT ON Problems No Known Problems Encounters Encounter Location Date Provider Diagnosis [facility] [address] [place] [address] 12/01/2023 Lilian Nelson Plan Of Treatment No Information Progress Notes * Antonette WILLINGHAM EDOB:[birth year] (78 yo F)Acc No.[id number]:12/01/2023 Patient:?Antonette iWllingham :1945???Age:78 Y???Sex:Female Address:[address] [place] [address], * true * Date:? Generated for Printi caden/Oscar/eTransmitting on:?10/11/2024 08:33 AM EST
--- OUTSIDE RECORDS SUMMARY | 2024-10-11 08:34 | XMS_ITS | Patient Health Record ---
Author Organization [facility] Address [address] [place] [address] Care Team Providers Care Packaging Designer Name Role Phone Silver Lopes Primary Care Provider Lilian Morales Unavailable [phone] Allergies Allergen (clinical drug ingredient) Drug/Non Drug [...] Problems Encounters Encounter Location Date Provider Diagnosis [facility] [address] [place] [address] 12/01/2023 Lilian Nelson [facility] [address] [place] [address] 01/06/2024 Lilian Nelson Plan Of Treatment No Information Insurance Providers Payer Name Payer Address Payer Phone Subscriber Number Group Number Insured Name Patient Relationship to Insured Coverage Start Date Coverage End Date Medicare National Govt Svcs Inc [address] [place] [address] [id number] Antonette Willingham Self - patient is the insured 1 AARP Secondary to Medicare [address] [place] [id number] Antonette Willingham Self - patient is the insured Medical (General) History Medical History History ICD Code Cholesterol High blood pressure Mumps Chicken pox Arthritis Back,Hip,and Knee pain Measles Surgical History Surgery Date(Month/Year) gall bladder 2005
--- OUTSIDE RECORDS SUMMARY | 2024-10-11 08:34 | XMS_ITS ---
Author Organization Jeff Lopes MD Address [address] [place] [address] [place] [phone] Care Team Providers Care Treasury Assistant Name Role Phone Jeff Lopes Primary Care Provider [phone] REASON FOR VISIT U/A check Encounters Encounter Location Date Provider Diagnosis Jeff Lopes MD [address] [place] [phone] 09/25/2024 Jeff Lopes Urinary tract infection without hematuria, site unspecified N39.0 Assessments Encounter Date Diagnosis (ICD Code) Assessment Notes Treatment Notes Treatment Clinical Notes Section Notes 09/25/2024 Urinary tract infection without hematuria, site unspecified (ICD-10 - N39.0) Plan Of Treatment Pending Test Test Name Order Date UA ClnCatch+Micro w/rflx Cult 09/25/2024 Next Appt Details Provider Name:Jeff foster, 02/28/2025 07:45:00 AM, [address] [place] [address], [address], [phone], Provider Name:Jeff foster, 03/07/2025 10:45:00 AM, [address] [place] [address], [address], [phone], Provider Name:Jeff foster, 09/05/2025 07:30:00 AM, [address] [place] [address], [phone], Provider Name:Jeff foster, 09/12/2025 08:30:00 AM, [address] [place] [address], [phone], Progress Notes * Antonette WILLINGHAM EDOB:[birth year] (79 yo F)Acc No.[id number]:09/25/2024 Progress Note Patient:Anotnette DIXON Provider:?Jeff Lopes MD :1945???Age:79 Y???Sex:Female D ate:09/25/2024 Address:[address] [place] [phone] Subjective: * Chief Complaints: * ???1. U/A check. * Medical History:? Objective: * Vitals:? Assessment: * Assessment: 1.?Urinary tract infection w ithout hematuria, site unspecified - N39.0 (Primary)??? Plan: * Treatment: * * The named appointment provid er may or may not be the originator of this progress note, and it is not deemed complete until electronically signed by the appointment provider. Sign off status: Pending * Provider:?Jeff Lopes MD Date:?0 09/25/2024 Generated for Vishal negrete/Oscar/eTcuongsmitting on:?10/11/2024 08:33 AM EST
== END 2024-10-11 09:11 | disposition home or self-care (01) ==
PROVIDERS: PCP Internal Medicine; Visit Provider Nurse Practitioner Family
DX: E78.5 Hyperlipidemia, unspecified (principal); R07.89 Other chest pain; I45.10 Unspecified right bundle-branch block; I10 Essential (primary) hypertension
CPT/HCPCS: 93010; 99214; G2211

== ENCOUNTER → 2024-10-11 08:13 | Outpatient (BNVA) | payer MEDICARE, SELFPAY | PROVIDERS: PCP Internal Medicine; Visit Provider Nurse Practitioner Family | DX: I10 Essential (primary) hypertension (principal); E78.5 Hyperlipidemia, unspecified; I45.10 Unspecified right bundle-branch block; R03.0 Elevated blood-pressure reading, without diagnosis of hypertension; R07.89 Other chest pain | CPT/HCPCS: 93005; 99212 ==

== ENCOUNTER 2024-10-18 10:15 | Outpatient (REF) | payer MEDICARE, SELFPAY ==
[2024-10-18 11:06] LABS: Appearance Urine Clear; Color Urine Yellow; Glucose Urine UA Negative (Negative); Leukocyte Esterase Urine Moderate (2+) (Negative); Nitrite Urine Negative (Negative); PH 5.5 (5.0-9.0); Specific Gravity - Urine 1.015 (1.005-1.025); UMIC TRIGGER UACC YES; Urine Blood Negative (Negative); Urine Ketones Negative (Negative); Urine Protein Negative (Neg-Trace)
[2024-10-18 11:07] LABS: Bacteria Urine None Seen (None Seen); RBC Urine 0-2 /HPF (0-2); Squamous Epithelial Cell Urine 0-2 /HPF (0-2); UACC Culture Trigger YES
--- OUTSIDE RECORDS SUMMARY | 2024-10-18 12:42 | XMS_ITS ---
Author Organization Jeff Lopes MD Address [address] [place] [phone] Care Team Providers Care Water Service Dispatcher Name Role Phone Jeff Lopes Primary Care Provider Results Component Value Reference Range Notes UA ClnCatch+Micro w/rflx Cul t (Not yet reviewed by provider) Interpretation: Performing Lab:[facility], [address] [place] [phone] Notes/Report: Urine, Clean Catch Color Urine Yellow Appearance Urine Clear PH 5.5 5.0-9.0 Glucose Urine UA Negative Negative mg/dL Urine Blood Negative Negative Specific Bowie - Urine 1.015 1.005-1.025 Urine Protein Negative Neg-Trace mg/dL Urine Ketones Negative Negative mg/dL Nitrite Urine Negative Negative Leukocyte Esterase Urine Moderate (2+) Negative RBC Urine 0-2 0-2 /HPF WBC Urine 6-10 0-5 /HPF Squamous Epithelial Cell Urine 0-2 0-2 /HPF Bacteria Urine None Seen None Seen Hyaline Casts Urine 3-5 0-2 /LPF REASON FOR VISIT ua Encounters Encounter Location Date Provider Diagnosis Jeff Lopes MD [address] [place] [phone] 10/18/2024 Jeff Lopes UTI (urinary tract infection) N39.0 Assessments Encounter Date Diagnosis (ICD Code) Assessment Notes Treatment Notes Treatment Clinical Notes Section Notes 10/18/2024 UTI (urinary tract infection) (ICD-10 - N39.0) Plan Of Treatment Pending Test Test Name Order Date UA ClnCatch+Micro w/rflx Cult 10/18/2024 Next Appt Details Provider Name:Jeff Zuniga ier, 02/28/2025 07:45:00 AM, [address], Suite [facility], [place], [place], [phone], Provider Name:Jeff Zuniga ier, 03/07/2025 10:45:00 AM, [address], [address], [place], [phone], Provider Name:Jeff Zuniga ier, 09/05/2025 07:30:00 AM, [address] [facility], Suite [facility], [place], [phone], Provider Name:Jeff Zuniga ier, 09/12/2025 08:30:00 AM, [address] [facility], Suite [facility], [place], [phone], Progress Notes * Antonette WILLINGHAM EDOB:[birth year] (79 yo F)Acc No.[id number]:10/18/2024 Progress Note Patient:?Antonette WILLINGHAM Provider:?Jeff Lopes MD :1945???Age:79 Y???Sex:Female D ate:10/18/2024 Address:[address] [place] [phone] Subjective: * Chief Complaints: * ???1. Ua. * Medical History:? Objective: * Vitals:? Assessment: * Assessment: 1.?UTI (urinary tract infect ion) - N39.0??? Plan: * Treatment: * * The named appointment provid er may or may not be the originator of this progress note, and it is not deemed complete until electronically signed by the appointment provider. Sign off status: Pending * Provider:?Jeff Lopes MD Date:?0 10/18/2024 Generated for Vishal negrete/Oscar/Monicasmitting on:?10/18/2024 12:42 PM EDT
--- OUTSIDE RECORDS SUMMARY | 2024-10-18 12:42 | XMS_ITS ---
Author Organization [facility] Address [address] [place] [address] Care Team Providers Care Biometrics Analyst Name Role Phone JamiSilver noriega Primary Care Provider Laciea Lilian Dorsey [phone] REASON FOR VISIT cx chip drier appt Problems No Known Problems Encounters Encounter Location Date Provider Diagnosis [facility] [address] [place] [address] 01/06/2024 Lilian Nelson Plan Of Treatment No Information Progress Notes * Antonette WILLINGHAM EDOB:[birth year] (78 yo F)Acc No.[id number]:01/06/2024 Patient:?Antonette Willingham :1945???Age:78 Y???Sex:Female Address:[address] [place] [address], * true * Date:? Generated for Printi ng/Faxing/eTransmitting on:?10/18/2024 12:42 PM EDT
--- OUTSIDE RECORDS SUMMARY | 2024-10-18 12:43 | XMS_ITS ---
Author Organization [facility] Address [address] [place] [address] Care Team Providers Care Coal Trammer Name Role Phone CarrilloSilver belle Primary Care Provider Lilian Morales Unavailable [phone] Allergies Allergen (clinical drug ingredient) Drug/Non Drug [...] 01/11/2024 Encounters Encounter Location Date Provider Diagnosis [facility] [address] [place] [address] 01/11/2024 Lilian Nelson Plan Of Treatment No Information Progress Notes * Antonette WILLINGHAM EDOB:[birth year] (79 yo F)Acc No.[id number]:01/11/2024 Progress Notes Patient:?Antonette WILLINGHAM Provider:?Lilian Nelson DPM :1945???Age:78 Y???Sex:Female D ate:01/11/2024 Address:[address] [place] [phone] Pcp:Silver Lopes Subjective: * Chief Complaints: * [...] Nelson DPM Date:?12/2023 Generated for Vishal negrete/Oscar/Eldon on:?10/18/2024 12:43 PM EDT
--- OUTSIDE RECORDS SUMMARY | 2024-10-18 12:43 | XMS_ITS ---
Author Organization [facility] Address [address] [place] [address] Care Team Providers Care Claims Correspondence Clerk Name Role Phone JamiSilver noriega Primary Care Provider Laciea Lilian Dorsey [phone] REASON FOR VISIT ON Problems No Known Problems Encounters Encounter Location Date Provider Diagnosis [facility] [address] [place] [address] 12/01/2023 Lilian Nelson Plan Of Treatment No Information Progress Notes * Antonette WILLINGHAM EDOB:[birth year] (78 yo F)Acc No.[id number]:12/01/2023 Patient:?Antonette Willingham :1945???Age:78 Y???Sex:Female Address:[address] [place] [address], * true * Date:? Generated for Printi ng/Fapietrog/eTransmitting on:?10/18/2024 12:43 PM EDT
--- OUTSIDE RECORDS SUMMARY | 2024-10-18 12:43 | XMS_ITS ---
Author Organization Jeff Lopes MD Address [address] [place] [phone] Care Team Providers Care Patrol Inspector Name Role Phone Jeff Lopes Primary Care Provider REASON FOR VISIT UTI Medications Medication SIG (Take, Route, Frequency, Duration) Notes Start Date End Date Status Cipro 250 MG 1 tablet Orally every 12 hrs for 5 days 09/17/2024 Active Encounters Encounter Location Date Provider Diagnosis Jeff Lopes MD [address] [place] [address] [place] [phone] 09/17/2024 Jeff Lopes Plan Of Treatment Medication Medication Name Sig Start Date Stop Date Notes Cipro 250 MG 1 tablet Orally every 12 hrs for 5 days 09/17 Next Appt Details Provider Name:Jeff foster, 02/28/2025 07:45:00 AM, [address] [place] [address], [phone], Provider Name:Jeff foster, 03/07/2025 10:45:00 AM, [address] [place] [address], [phone], Provider Name:Jeff foster, 09/05/2025 07:30:00 AM, [address] [place] [address], [phone], Provider Name:Jeff foster, 09/12/2025 08:30:00 AM, [address] [place] [address], [phone], Progress Notes * Antonette WILLINGHAM EDOB:[birth year] (79 yo F)Acc No.[id number]:09/17/2024 Patient:?Antonette WILLINGHAM :1945???Age:79 Y???Sex:Female Address:[address] [place] [address] * Refills? Start Cipro Tablet, 250 MG, Orally, 10 Tablet, 1 tablet, every 12 hrs, 5 days * Addendum: * ? true * Date:? Generated for Vishal negrete/Oscar/eTransmitting on:?10/18/2024 12:42 PM EDT
--- OUTSIDE RECORDS SUMMARY | 2024-10-18 12:43 | XMS_ITS | Clinical Summary ---
Author Organization [employer] [facility] Address [address] [place] [address] Care Team Providers Care Assistant Director Of Nursing Name Role Phone Unavailable Primary Care Provider [...] AM EDT Appointment [facility] [address] [address] Health Maintenance Due Date Last [...] age to complete this topic Insurance MEDICARE [facility]
--- OUTSIDE RECORDS SUMMARY | 2024-10-18 12:44 | XMS_ITS ---
Author Organization Jeff Lopes MD Address [address] [place] [address] [place] [phone] Care Team Providers Care Roll Picker Name Role Phone Jeff Lopes Primary Care Provider REASON FOR VISIT U/A check Encounters Encounter Location Date Provider Diagnosis Jeff Lopes MD [address] [place] [phone] 09/25/2024 Jeff Lopes Urinary tract infection without hematuria, site unspecified N39.0 Assessments Encounter Date Diagnosis (ICD Code) Assessment Notes Treatment Notes Treatment Clinical Notes Section Notes 09/25/2024 Urinary tract infection without hematuria, site unspecified (ICD-10 - N39.0) Plan Of Treatment Pending Test Test Name Order Date UA ClnCatch+Micro w/rflx Cult 09/25/2024 Next Appt Details Provider Name:Jeff foster, 02/28/2025 07:45:00 AM, [address] [place] [address], [address], [phone], Provider Name:Jeff foster, 03/07/2025 10:45:00 AM, [address] [place] [address], [address], [phone], Provider Name:Jeff foster, 09/05/2025 07:30:00 AM, [address] [place] [address], [phone], Provider Name:Jeff foster, 09/12/2025 08:30:00 AM, [address] [place] [address], [phone], Progress Notes * Antonette WILLINGHAM EDOB:[birth year] (79 yo F)Acc No.[id number]:09/25/2024 Progress Note Patient:Antonette DIXON Provider:?Jeff Lopes MD :1945???Age:79 Y???Sex:Female D ate:09/25/2024 Address:[address] [place] [phone] Subjective: * Chief Complaints: * ???1. U/A [...] Lopes MD Date:?0 09/25/2024 Generated for Vishal negrete/sOcar/eTransmitting on:?10/18/2024 12:43 PM EDT
--- OUTSIDE RECORDS SUMMARY | 2024-10-18 12:44 | XMS_ITS | Patient Health Record ---
Author Organization [facility] Address [address] [place] [address] Care Team Providers Care Nurse'S Aides Teacher Name Role Phone Silver Lopes Primary Care Provider Lilian Morales Unavailable [phone] Allergies Allergen (clinical drug ingredient) Drug/Non Drug [...] Problems Encounters Encounter Location Date Provider Diagnosis [facility] [address] [place] [address] 12/01/2023 Lilian Nelson [facility] [address] [place] [address] 01/06/2024 Lilian Nelson Plan Of Treatment No Information Insurance Providers Payer Name Payer Address Payer Phone Subscriber Number Group Number Insured Name Patient Relationship to Insured Coverage Start Date Coverage End Date Medicare [employer] [address] [facility] [place] [address] [id number] Antonette Willingham Self - patient is the insured 1 [employer] Secondary to Medicare [address] [place] [id number] Antonette Willingham Self - patient is the insured Medical (General) History Medical History History ICD Code Cholesterol High blood pressure Mumps Chicken pox Arthritis Back,Hip,and Knee pain Measles Surgical History Surgery Date(Month/Year) gall bladder 2005
== END 2024-10-18 10:16 | disposition home or self-care (01) ==
LOC: HO.LNP 10:15
PROVIDERS: Visit Provider Internal Medicine
DX: N39.0 Urinary tract infection, site not specified (principal)
CPT/HCPCS: 81001; 87086; 87088; 87186

== ENCOUNTER 2025-05-17 12:46 | Outpatient (REF) | payer MEDICARE, SELFPAY ==
[2025-05-17 13:31] LABS: Alanine Aminotransferase 38 U/L (0-31); Albumin Level 4.4 g/dL (3.5-5.0); Alkaline Phosphatase 83 U/L (39-117); Aspartate Amino Transferase 34 U/L (5-31); Cholesterol 180 mg/dL (<200); HDL Cholesterol 53 mg/dL (>40); Total Protein 6.9 g/dL (6.5-8.0); Triglycerides 216 mg/dL (<150)
[2025-05-17 15:17] LABS: Reflex LDLD? No
== END 2025-05-17 12:47 | disposition home or self-care (01) ==
LOC: HO.LNP 12:46
PROVIDERS: Visit Provider Internal Medicine
DX: R73.09 Other abnormal glucose (principal); E78.00 Pure hypercholesterolemia, unspecified
CPT/HCPCS: 80061; 80076; 82947; 83036